=== PATIENT | female | born 1930 | race Caucasian/White ===

== ENCOUNTER 2017-01-22 15:40 | Emergency (ER) | payer MEDICARE, MEDICAID ==
[2017-01-22] MEDS ORDERED: ONDANSETRON 4 MG TAB.RAPDIS PO ONE (16:35)
[2017-01-22] MEDS ORDERED: OXYCODONE-ACETAMINOPHEN 5-325 MG TABLET PO ONE (16:35)
--- NOTE | 2017-01-22 16:51 | RADIOLOGY REPORT (SQ) ---
EXAM DESCRIPTION: ELBOW LEFT AP/LATERAL COMPLETED DATE/TIME: 01/22/2017 4:30 pm REASON FOR STUDY: fall COMPARISON: None. NUMBER OF VIEWS: Four views. TECHNIQUE: AP, lateral, and both oblique radiographic images acquired of the left elbow. LIMITATIONS: None. FINDINGS: MINERALIZATION: Osteopenia. BONES: There is a fracture of the neck of the radius with angulation. The elbow is dislocated with t he ulna displaced dorsally in relation to the humerus. JOINT: No effusion. SOFT TISSUES: No soft tissue swelling. No foreign body. OTHER: No other significant finding. IMPRESSION: Fracture dislocation of the elbow. TECHNICAL DOCUMENTATION: JOB ID: [id number] [employer]- All Rights Reserved
[2017-01-22] MEDS ORDERED: FENTANYL CITRATE INJ/PF 100 MCG/2 ML AMPUL IV ONE (17:49)
--- NOTE | 2017-01-22 17:56 | ER Document Report ---
ED Extremity Problem, Upper - General Chief Complaint: Arm Injury Stated Complaint: LEFT ELBOW PAIN Time Seen by Provider: 01/22/17 16:35 Mode of Arrival: Medic Information source: Patient TRAVEL OUTSIDE OF THE [place] IN LAST 30 DAYS: No - HPI Patient complains to provider of: Right, Elbow Onset: Just prior to arrival Recent injury: Yes Where: Home Quality of pain: Dull Severity of pain: Moderate Context: Fall Arm and Shoulder (Left): 1 - PAIN, SWELLING, TENDER Associated symptoms: None Exacerbated by: Movement Relieved by: Rest Similar symptoms previously: No Recently seen / treated by doctor: No - Related Data Allergies/Adverse Reactions: simvastatin [From Zocor] Allergy (Verified 10/15/15 16:16) Generalized Itching Past Medical History - General Information source: Patient - Social History Smoking Status: Never Smoker Cigarette use (# per day): No Chew tobacco use (# tins/day): No Frequency of alcohol use: None Drug Abuse: None Lives with: Alone Family History: Reviewed & Not Pertinent Patient has suicidal ideation: No Patient has homicidal ideation: No - Past Medical History Cardiac Medical History: Reports: Hx Heart Attack - x2, Hx Hypertension Pulmonary Medical History: Reports: Hx Pneumonia Neurological Medical History: Reports: None Endocrine Medical History: Reports: Hx Diabetes Mellitus Type 2 Renal/ Medical History: Reports: None Malignancy Medical History: Reports: None GI Medical History: Reports: None Musculoskeltal Medical History: Reports Hx Arthritis Psychiatric Medical History: Reports: Hx Depression Past Surgical History: Reports: Hx Cardiac Surgery - bypass, Hx Coronary Artery Bypass Graft, Hx Orthopedic Surgery - bilateral hip replacement, WISHES TO F/U W / HER ORTHO IN [place] - Immunizations Hx Diphtheria, Pertussis, Tetanus Vaccination: No Hx Pneumococcal Vaccination: 09/03/15 Review of Systems - Review of Systems Constitutional: No symptoms reported EENT: No symptoms reported Cardiovascular: No symptoms reported Respiratory: No symptoms reported Gastrointestinal: No symptoms reported Genitourinary: No symptoms reported Musculoskeletal: See HPI Skin: No symptoms reported Neurological/Psychological: No symptoms reported Physical Exam - Vital signs Vitals: Temp Pulse Resp BP 97.6 F 72 16 166/65 H 01/22/17 15:48 01/22/17 15:48 01/22/17 15:48 01/22/17 15:48 Interpretation: Hypertensive - General General appearance: Appears well, Alert In distress: None - HEENT Head: Open wounds Eyes: Normal Ears: Normal Nasal: Normal Mouth/Lips: Normal Mucous membranes: Normal - Respiratory Respiratory status: No respiratory distress Chest status: Nontender Breath sounds: Normal - Cardiovascular Rhythm: Regular Heart sounds: Normal auscultation Murmur: No - Abdominal Inspection: Normal Distension: No distension - Extremities General upper extremity: No: Normal inspection - L. ELBOW (SEE HPI) - Neurological Neuro grossly intact: Yes Cognition: Normal Orientation: AAOx4 Sensory: Normal - Psychological Associated symptoms: Normal affect, Normal mood - Skin Skin Temperature: Warm Skin Moisture: Dry Skin Color: Normal Skin Turgor: Elastic Course - Vital Signs Vital signs: Temp Pulse Resp BP Pulse Ox 97.6 F 72 16 146/77 H 97 01/22/17 15:48 01/22/17 15:48 01/22/17 19:01 01/22/17 19:01 01/22/17 19:01 Procedures - Joint Reduction/Fracture Care Left Elbow Time completed: 19:12 Consent obtained: No Conscious sedation: No Pre-procedure NV exam: Yes - NORMAL Fracture: Closed Manipulation comment: REDUCED EASILY WITH TRACTION DOWNWARD & ANTERIORLY Post-procedure NV exam: Yes - UNCHANGED Post-reduction x-ray: Joint reduced Reduction attempts: 1 Complications: No Discharge - Discharge Clinical Impression: Elbow dislocation Qualifiers: Encounter type: initial encounter Laterality: left Qualified Code(s): S53.105A - Unspecified dislocation of left ulnohumeral joint, initial encounter Radial head fracture, closed Qualifiers: Encounter type: initial encounter Fracture alignment: displaced Laterality: left Qualified Code(s): S52.122A - Displaced fracture of head of left radius, initial encounter for closed fracture Condition: Stable Disposition: HOME, SELF-CARE Instructions: Radial Head Fracture ([facility]), Dislocation ([facility]), Ice Packs ([facility]), Splint Pending Casting ([facility]), Oral Narcotic Medication ([facility]) Additional Instructions: KEEP SPLINT ON EXCEPT WHEN BATHING. YOU MAY TAKE PERCOCET FOR PAIN IF NEEDED. FOLLOW UP WITH YOUR ORTHOPEDIC SURGEON NEXT WEEK, CALL TOMORROW FOR APPT. RETURN TO E.R. IF PROBLEMS, ANY TIME. Prescriptions: Oxycodone HCl/Acetaminophen [Percocet 5-325 mg Tablet] 1 - 2 tab PO ASDIR PRN # 15 tablet PRN Reason: Referrals: Agustina HITCHCOCK MD [Primary Care Provider] - Follow up as needed
--- NOTE | 2017-01-22 19:39 | RADIOLOGY REPORT (SQ) ---
EXAM DESCRIPTION: ELBOW LEFT AP/LATERAL COMPLETED DATE/TIME: 01/22/2017 7:26 pm REASON FOR STUDY: POST-REDUCTION COMPARISON: 01/22/2017 TECHNIQUE: Lateral view of the left elbow. LIMITATIONS: None. FINDINGS: There has been interval reduction of the previously described fracture dislocation of the elbow. IMPRESSION: Interval reduction as noted above. TECHNICAL DOCUMENTATION: JOB ID: [id number] [employer]- All Rights Reserved
[2017-01-22] MEDS ORDERED: HYDROCODONE/ACETAMINOPHEN 5-325 MG 6 TAB/DSPK PO PRN (20:25)
[2017-01-22 21:30] VITALS: BP 145/60
== END 2017-01-22 21:00 | disposition home or self-care (01) ==
LOC: ER 15:40
PROC: 0RSMXZZ Reposition Left Elbow Joint, External Approach (ICD-10-PCS; principal; 2017-01-22)
DX: S52.122A Displaced fracture of head of left radius, initial encounter for closed fracture (principal); S53.105A Unspecified dislocation of left ulnohumeral joint, initial encounter; W19.XXXA Unspecified fall, initial encounter; Y92.009 Unspecified place in unspecified non-institutional (private) residence as the place of occurrence of the external cause; I25.2 Old myocardial infarction; I10 Essential (primary) hypertension; E11.9 Type 2 diabetes mellitus without complications; Z95.1 Presence of aortocoronary bypass graft; Z88.8 Allergy status to other drugs, medicaments and biological substances
CPT/HCPCS: 99283; 73070; 24600; A9270 ×3; J3010; S0119

== ENCOUNTER 2017-04-08 12:26 | Emergency (ER) | payer MEDICARE, MEDICAID ==
--- NOTE | 2017-04-08 12:56 | ER Document Report ---
ED Hip Pain/Injury - General Mode of Arrival: Medic Information source: Patient TRAVEL OUTSIDE OF THE [place] IN LAST 30 DAYS: No <KRANTHI MELGAR - Last Filed: 04/08/17 13:07> <JERRI SLATER - Last Filed: 04/08/17 15:15> - General Chief Complaint: Hip Pain Stated Complaint: HIP PAIN Time Seen by Provider: 04/08/17 12:35 Notes: Patient is an 86-year-old female who presents to the emergency department today with complaints of bilateral hip pain. Patient states she has had this pain for approximately 1 month. Patient states she was seen by her PCP for this 2 weeks ago but she had "no suggestions". Patient is on pain management for chronic pain. Patient denies any new injury or trauma to her hips. (KRANTHI MELGAR) The patient is on chronic pain management for quite some time fentanyl patches 12 mcg, and oxycodone 7.5 mg tablets 2-3 times daily. (JERRI SLATER) - Related Data Allergies/Adverse Reactions: simvastatin [From Zocor] Allergy (Verified 10/15/15 16:16) Generalized Itching Home Medications: Current Home Medications Calcium Carbonate [Calcium] 500 mg PO DAILY 04/08/17 [History] Hydralazine HCl 10 mg PO TID 04/08/17 [History] Metoprolol Tartrate [Metoprolol Tartrate] 1 tab PO BID 04/08/17 [History] Past Medical History - General Information source: Patient - Social History Smoking Status: Never Smoker Cigarette use (# per day): No Frequency of alcohol use: None Drug Abuse: None Lives with: Family Family History: Reviewed & Not Pertinent - Past Medical History Cardiac Medical History: Reports: Hx Heart Attack - x2, Hx Hypertension Pulmonary Medical History: Reports: Hx Pneumonia Endocrine Medical History: Reports: Hx Diabetes Mellitus Type 2 Musculoskeltal Medical History: Reports Hx Arthritis Psychiatric Medical History: Reports: Hx Depression Past Surgical History: Reports: Hx Cardiac Surgery - bypass, Hx Coronary Artery Bypass Graft, Hx Orthopedic Surgery - bilateral hip replacement, WISHES TO F/U W / HER ORTHO IN [place] - Immunizations Hx Diphtheria, Pertussis, Tetanus Vaccination: No Hx Pneumococcal Vaccination: 09/03/15 <KRANTHI MELGAR - Last Filed: 04/08/17 13:07> Review of Systems - Review of Systems Constitutional: No symptoms reported EENT: No symptoms reported Cardiovascular: No symptoms reported Respiratory: No symptoms reported Gastrointestinal: No symptoms reported Genitourinary: No symptoms reported Female Genitourinary: No symptoms reported Musculoskeletal: See HPI, Joint pain - bilateral hip pain Skin: No symptoms reported Hematologic/Lymphatic: No symptoms reported Neurological/Psychological: No symptoms reported -: Yes All other systems reviewed and negative <KRANTHI MELGAR - Last Filed: 04/08/17 13:07> Physical Exam - Vital signs Interpretation: Normal - General General appearance: Appears well, Alert - HEENT Head: Normocephalic, Atraumatic Eyes: Normal Pupils: PERRL - Respiratory Respiratory status: No respiratory distress Chest status: Nontender Breath sounds: Normal Chest palpation: Normal - Cardiovascular Rhythm: Regular Heart sounds: Normal auscultation Murmur: No - Abdominal Inspection: Normal Distension: No distension Bowel sounds: Normal Tenderness: Nontender Organomegaly: No organomegaly - Back Back: Normal, Nontender - Extremities General upper extremity: Normal ROM, Other - arthritic changes to bilateral wrists consistent with fracture history. No: Edema General lower extremity: Other - Right knee effusion. Bilateral hip tenderness with internal/external rotation of hips. - Neurological Neuro grossly intact: Yes Cognition: Normal Orientation: AAOx4 [place] Coma Scale Eye Opening: Spontaneous [place] Coma Scale Verbal: Oriented [place] Coma Scale Motor: Obeys Commands [place] Coma Scale Total: 15 Speech: Normal - Psychological Associated symptoms: Normal affect, Normal mood - Skin Skin Temperature: Warm Skin Moisture: Dry <KRANTHI MELGAR - Last Filed: 04/08/17 13:07> <JERRI SLATER - Last Filed: 04/08/17 15:15> - Vital signs Vitals: Resp Pulse Ox 16 98 04/08/17 12:48 04/08/17 12:48 - Skin Notes: Bandaged abrasion over left lateral leg, bleeding is controlled. (KRANTHI MELGAR) Course <KRANTHI MELGAR - Last Filed: 04/08/17 13:07> - Diagnostic Test Radiology reviewed: Image reviewed, Reports reviewed - Patient has bilateral total hip replacements with no gross abnormality seen. 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 <JERRI SLATER - Last Filed: 04/08/17 15:15> - Re-evaluation Re-evalutation: 04/08/17 15:14 At discharge, the patient finally admitted that she has run out of her pain medication because she was taking more than she supposed to due to her pain. She also is running out of her fentanyl patch. I had the nurse advised her that we do not treat chronic pain, we do not supply narcotics to people who run out of their chronic pain medication by overmedicating themselves. She would have to see her pain management doctor to try to work out an arrangement if possible. (JERRI SLATER) - Vital Signs Vital signs: Temp Pulse Resp BP Pulse Ox 19 186/74 H 96 04/08/17 14:00 04/08/17 13:01 04/08/17 14:00 - Laboratory Laboratory results interpreted by me: 04/08/17 13:32 Urine Protein 30 H Urine Glucose (UA) >=500 H Urine Ketones 20 H Urine Urobilinogen 2.0 H Discharge <KRANTHI MELGAR - Last Filed: 04/08/17 13:07> <JERRI SLATER - Last Filed: 04/08/17 15:15> - Discharge Clinical Impression: Bilateral hip pain Chronic pain Qualifiers: Chronic pain type: chronic pain syndrome Qualified Code(s): G89.4 - Chronic pain syndrome Condition: Stable Disposition: HOME, SELF-CARE Additional Instructions: No new abnormalities were found today. You pain seems to be related to your chronic pain management difficulties. You should follow-up with your pain management doctors to discuss the progressively worsening pain you are having. RETURN TO THE EMERGENCY ROOM IF ANY NEW OR WORSENING SYMPTOMS. Referrals: SHAYY FLORES MD [Primary Care Provider] - Follow up as needed Scribe Attestation: 04/08/17 15:03 I personally performed the services described in the documentation, reviewed and edited the documentation which was dictated to the scribe in my presence, and it accurately records my words and actions. (JERRI SLATER) Scribe Documentation - Scribe Written by Samanta:: Samanta Patterson, 04/08/2017 [id number] acting as scribe for :: Horacio <KRANTHI MELGAR - Last Filed: 04/08/17 13:07>
[2017-04-08 14:24] LABS: APPEARANCE,URINE SLIGHTLY-CLOUDY; BILIRUBIN,URINE NEGATIVE (NEGATIVE); GLUCOSE, URINE >=500 mg/dL (NEGATIVE); KETONES,URINE 20 mg/dL (NEGATIVE); LEUKOCYTE ESTERASE,URINE NEGATIVE (NEGATIVE); NITRITE,URINE NEGATIVE (NEGATIVE); PROTEIN,URINE 30 mg/dL (NEGATIVE)
--- NOTE | 2017-04-08 14:31 | RADIOLOGY REPORT (SQ) ---
EXAM DESCRIPTION: HIP BILATERAL COMPLETED DATE/TIME: 04/08/2017 2:02 pm REASON FOR STUDY: worsening bilat hip pain, COMPARISON: 09/21/2015 NUMBER OF VIEWS: Two views TECHNIQUE: AP pelvis and additional frog-leg view of both hips. LIMITATIONS: None. FINDINGS: MINERALIZATION: Normal. HIPS: Status post bilateral total hip replacement. Each acetabular cup and femoral head in good posi tion. No loosening. No significant abnormality of the surrounding [place] bone. PELVIS AND SACRUM: No acute fracture or dislocation. No worrisome bone lesions. PUBIS AND ISCHIUM: No acute fracture. LOWER LUMBAR SPINE: Limited visualization suspected severe disc degeneration and facet arthropathy. SOFT TISSUES: No findings. OTHER: No other significant finding. IMPRESSION: Status post bilateral total hip replacement. Each prosthesis in good position. No sign ificant abnormality to explain the history of worsening hip pain. Pain might be radicular when deepak elated with the changes involving the lower lumbar spine. TECHNICAL DOCUMENTATION: JOB ID: [id number] [employer]- All Rights Reserved
[2017-04-08 15:36] VITALS: BP 180/83
== END 2017-04-08 15:42 | disposition home or self-care (01) ==
LOC: ER 12:26
DX: M25.551 Pain in right hip (principal); M25.552 Pain in left hip; G89.4 Chronic pain syndrome; Z79.899 Other long term (current) drug therapy
CPT/HCPCS: 73522; 81001; 99284

== ENCOUNTER 2018-03-17 11:00 | Inpatient (IN) | payer MEDICARE, MEDICAID ==
--- NOTE | 2018-03-17 11:42 | ER Document Report ---
ED General - General Chief Complaint: General Weakness Stated Complaint: WEAKNESS Time Seen by Provider: 03/17/18 11:10 Mode of Arrival: Stretcher Information source: Patient, Relative Notes: 87-year-old female with hypertension CHF, lupus, and CT 2 status post CABG, diverticulosis, GERD, type 2 diabetes, SLE who presents to the ED via EMS from home with generalized weakness, malaise, productive cough, chills, sweats, and mild abdominal pain x 2-3 days. Patient states she has a history of pneumonia that presented similarly. Denies taking any medications for her symptoms. Poor p.o. intake since symptom onset, last normal bowel movement yesterday. Denies headache, syncope, falls, dizziness, chest pain, shortness of breath, nausea, vomiting, diarrhea, melena, hematochezia. TRAVEL OUTSIDE OF THE [place] IN LAST 30 DAYS: No - HPI Onset: Other - 2-3 days ago Onset/Duration: Gradual Quality of pain: Achy Severity: Moderate Associated symptoms: Chills, Productive cough, Nausea. denies: Fever, Vomiting Exacerbated by: Denies Relieved by: Denies Similar symptoms previously: Yes Recently seen / treated by doctor: No - Related Data Allergies/Adverse Reactions: simvastatin [From Zocor] Allergy (Verified 10/15/15 16:16) Generalized Itching Past Medical History - General Information source: Patient, Relative, [facility] Records - Social History Smoking Status: Never Smoker Frequency of alcohol use: None Drug Abuse: None Lives with: Alone Family History: Reviewed & Not Pertinent Patient has suicidal ideation: No Patient has homicidal ideation: No - Medical History Notes: Hypertension, CT 2 status post CABG, type 2 diabetes, SLE, GERD, pneumonia, diverticulosis - Past Medical History Cardiac Medical History: Reports: Hx Heart Attack - x2, Hx Hypertension Pulmonary Medical History: Reports: Hx Pneumonia Endocrine Medical History: Reports: Hx Diabetes Mellitus Type 2 Musculoskeletal Medical History: Reports Hx Arthritis Psychiatric Medical History: Reports: Hx Depression Past Surgical History: Reports: Hx Cardiac Surgery - bypass, Hx Coronary Artery Bypass Graft, Hx Orthopedic Surgery - bilateral hip replacement, WISHES TO F/U W / HER ORTHO IN [place] [facility] - Immunizations Hx Diphtheria, Pertussis, Tetanus Vaccination: No Hx Pneumococcal Vaccination: 09/03/15 Review of Systems - Review of Systems Notes: REVIEW OF SYSTEMS: CONSTITUTIONAL : (+) fever, chills, sweats. Denies recent illness. Denies weight loss, recent hospitalizations. EENT: Denies visual changes, eye pain. Denies nasal or sinus congestion or discharge. Denies sore throat, oral lesions, difficulty swallowing. CARDIOVASCULAR: Denies chest pain. Denies palpitations. Denies lower extremity edema. RESPIRATORY: (+) productive cough. Denies shortness of breath, wheezing. GASTROINTESTINAL: (+) diffuse abdominal pain, Denies distention. Denies nausea , vomiting, or diarrhea. Denies blood in vomitus, stools, or per rectum. Denies black, tarry stools. Denies constipation. GENITOURINARY: Denies difficulty urinating, painful urination, frequency, blood in urine, or vaginal discharge. MUSCULOSKELETAL: Denies back or neck pain or stiffness. Denies joint pain or swelling. SKIN: Denies rash, lesions or sores. HEMATOLOGIC : Denies easy bruising or bleeding. LYMPHATIC: Denies swollen glands. NEUROLOGICAL: Denies confusion or altered mental status. Denies passing out or loss of consciousness. Denies dizziness or lightheadedness. Denies headache. Denies weakness or paralysis. Denies problems difficulty with ambulation, slurred speech. Denies sensory loss, numbness, or tingling. Denies seizures. PSYCHIATRIC: Denies anxiety or stress. Denies depression, suicidal ideation, or homicidal ideation. Denies visual or auditory hallucinations. Physical Exam - Vital signs Vitals: Temp Pulse Resp BP Pulse Ox 97.4 F 75 16 164/67 H 97 03/17/18 11:04 03/17/18 11:04 03/17/18 11:04 03/17/18 11:04 03/17/18 11:04 - Notes Notes: PHYSICAL EXAMINATION: GENERAL: Ill-appearing, frail, elderly female in no acute distress. HEAD: Atraumatic, normocephalic. EYES: Pupils equal round and reactive to light, extraocular movements intact, conjunctiva are normal. ENT: Nares patent, oropharynx clear without exudates. Tacky mucous membranes. NECK: Normal range of motion, supple without lymphadenopathy LUNGS: Bibasilar crackles, breath sounds equal bilaterally. Normal work of breathing. HEART: Regular rate and rhythm without murmurs ABDOMEN: Mild diffuse abdominal tenderness.. nondistended abdomen. No guarding , no rebound. No masses appreciated. Female : deferred Musculoskeletal: Normal range of motion, no pitting or edema. No cyanosis. NEUROLOGICAL: Cranial nerves grossly intact. Normal speech, normal gait. Normal sensory, motor exams PSYCH: Normal mood, normal affect. SKIN: Warm, Dry, normal turgor, no rashes or lesions noted. Course - Re-evaluation Re-evalutation: 03/17/18 19:52 Jennyrantoniabeth simvastatin [From Zocor] Allergy (Verified 10/15/15 16:16) Generalized Itching Patient Prescrptions Alprazolam [Xanax] 0.25 mg PO BID@1200,2200 03/17/18 Amlodipine Besylate [Norvasc 5 mg Tablet] 5 mg PO NOON 03/17/18 Atenolol [Tenormin 50 mg Tablet] 50 mg PO QHS 03/17/18 Calcium Carbonate [Calcium] 600 mg PO NOON 03/17/18 Cholecalciferol (Vitamin D3) [Vitamin D3] 5,000 unit PO NOON 03/17/18 Fenofibrate 160 mg PO DAILY 03/17/18 Fentanyl [Duragesic 12 Mcg/Hr Transdermal Patch] 1 patch TOP Q3D 03/17/18 Ferrous Sulfate [Feosol 325 mg Tablet] 325 mg PO TID@1200,1800,2200 03/17/18 Furosemide [Lasix 20 mg Tablet] 5 mg PO DAILY 03/17/18 Gabapentin [Neurontin 300 mg Capsule] 600 mg PO Q12 03/17/18 Glimepiride [Amaryl 4 mg Tablet] 4 mg PO BID 03/17/18 Hydralazine HCl [Apresoline 25 mg Tablet] 25 mg PO Q8 03/17/18 Hydroxyzine Pamoate [Vistaril 25 mg Capsule] 25 mg PO QHS 03/17/18 Isosorbide Mononitrate [Isosorbide Mononitrate ER] 30 mg PO NOON 03/17/18 Levothyroxine Sodium [Synthroid 0.025 mg Tablet] 0.025 mg PO NOON 03/17/18 Metoprolol Tartrate [Lopressor 25 mg Tablet] 12.5 mg PO Q12 03/17/18 Omeprazole 20 mg PO DAILY 03/17/18 Oxycodone HCl/Acetaminophen [Oxycodon-Acetaminophen 7.5-325] 1 tab PO Q12HP PRN 08/15/18 Paroxetine HCl [Paxil 20 mg Tablet] 20 mg PO DAILY 03/17/18 Prednisone 7.5 mg PO QHS 03/17/18 Promethazine HCl [Phenergan 25 mg Tablet] 25 mg PO DAILYP PRN 03/17/18 Zolpidem Tartrate [Ambien 5 mg Tablet] 5 mg PO QHS 03/17/18 Clinical Data Isolation Standard Height 5 ft 3 in Weight 52.617 kg IV? Yes : No Please enter food consistency: Regular Consistency Please choose liquid type: Regular Liquids Discharge Information ED Provider: LETY ALEMAN Status: Bed Clean Time Seen by Provider: 03/17/18 11:10 Condition: Good Triaged At: 03/17/18 11:00 Emergency Discharge Date/Time: Emergency Discharge Disposition: ADMITTED INPATIENT Clinical Impression Elevated troponin I level Urinary tract infection Emergency Discharge Comment: Admit Intervention Last Done Vital Signs (ED) 03/17/18 11:25 Query Result Height 5 ft 3 in Weight 52.617 kg Discharge Documentation Left Without Being Seen (LWBS) Left Against Medical Advice (AMA)/Eloped Inpatient Discharge Date/Time: Inpatient Discharge Disposition: Inpatient Discharge Comment: Instructions: Stand-Alone Forms: Prescriptions: Visit Report - Forms: - Referrals: SHAYY FLORES MD (Primary Care Provider) - Follow up as needed Intake and Output 03/16/18 03/17/18 03/18/18 06:59 06:59 06:59 Intake Total 50 Balance 50 Weight 52.617 kg Intake: IV 50 Rocephin Inj 1000 mg Vial 50 1,000 mg In NaCl 0.9% 50 ml IV Soln 50 ml @ 100 mls/hr IV NOW ONE Rx#: [id number] Medications Generic Name Dose Route Start Last Admin Trade Name Freq PRN Reason Stop Dose Admin Acetaminophen 650 mg 03/17/18 16:09 Tylenol 325 Mg Tablet PO 04/16/18 16:08 Q4HP PRN FEVER >101 Dextrose 12.5 gm 03/17/18 16:50 Dextrose Inj 50% Syringe (25 Gm/50 Ml) IV 04/16/18 16:49 PRN PRN FOR BG 50-69 IN ALERT PATIENT Protocol Dextrose 25 gm 03/17/18 16:50 Dextrose Inj 50% Syringe (25 Gm/50 Ml) IV 04/16/18 16:49 PRN PRN PER PROTOCOL Protocol Enoxaparin Sodium 40 mg 03/18/18 10:00 Lovenox Inj 40 Mg/0.4 Ml Disp.Syrin SUBCUT 04/17/18 09:59 DAILY VERNON Glucagon 1 mg 03/17/18 16:50 Glucagen Inj 1 Mg Vial IM 04/16/18 16:49 PRN PRN Evaluate for BG < 70 Protocol Glucose 15 gm 03/17/18 16:50 Glutose 40% Gel 15 Gm Tube PO 04/16/18 16:49 PRN PRN FOR BG 50-69 IN ALERT PATIENT Protocol Glucose 30 gm 03/17/18 16:50 Glutose 40% Gel 15 Gm Tube PO 04/16/18 16:49 PRN PRN FOR BG < 50 IN ALERT PATIENT Protocol Hydralazine HCl 10 mg 03/17/18 16:48 Apresoline Inj/Pf 20 Mg/1 Ml Sdv IV 04/16/18 16:47 Q3HP PRN GIVE FOR SBP > [] / DBP > [] Sodium Chloride 1,000 mls @ 75 mls/hr 03/17/18 16:09 03/17/18 18:29 Nacl 0.9% 1000 Ml Iv Soln IV 04/16/18 16:08 75 mls/hr CONTINUOUS PRN Administration THIS MED IS NOT "PRN" Ceftriaxone Sodium 1,000 mg/ 50 mls @ 100 mls/hr 03/18/18 18:00 Dextrose IV 03/25/18 17:59 QPM [facility] Insulin Human Lispro 0 - 12 unit 03/17/18 16:50 Humalog Insulin 100 Unit/1 Ml 3 Ml Vial SUBCUT 04/16/18 16:49 ACHSP PRN PER PROTOCOL Protocol Lansoprazole 30 mg 03/18/18 06:00 Prevacid 30 Mg Odt Tablet PO 04/17/18 05:59 Q6AM [facility] Ondansetron HCl 4 mg 03/17/18 16:09 Zofran Odt 4 Mg Tablet PO 04/16/18 16:08 Q4HP PRN FOR NAUSEA/VOMITING Discontinued Medications Generic Name Dose Route Start Last Admin Trade Name Freq PRN Reason Stop Dose Admin Ceftriaxone Sodium/Dextrose 1 gm in 50 mls @ 100 mls/hr 03/17/18 13:29 18:10 Rocephin Rtu 1 Gm/D5w 50 Ml Premix IV 03/17/18 13:58 Not Given NOW ONE Ceftriaxone Sodium 1,000 mg/ 50 mls @ 100 mls/hr 03/17/18 16:00 03/17/18 16: 05 Sodium Chloride IV 03/17/18 16:29 Infused NOW ONE Infusion Nursing Notes 03/17/18 18:37 Nursing Note by OTIS MCKEON pt called out using call denney stating "I'm burning up" this pct entered room, pt was diaphoretic in stretcher with meal tray untouched on bedside table; this pct grabbed charged nurse; accucheck performed, values given to charge nurse and pt nurse; pt drank 2 orange juice boxes and ate apple sauce; accucheck retaken; pt placed on bedpan; pt voided; barrier cream applied to pt fold on right side 1806 accucheck 58mg/dL 1830 accucheck 83 mg/dL Initialized on 03/17/18 18:37 - END OF NOTE 03/17/18 18:31 ED Nursing Note by BILLY MAGDALENO Recheck BGL after q15 83. Will monitor q30min x2 per protocol. Initialized on 03/17/18 18:31 - END OF NOTE 03/17/18 18:11 ED Nursing Note by BILLY MAGDALENO Pt diaphoretic with BGL 58. Administered 4oz OJ and assisted with meal tray. Will recheck glucose in q15 and implement hypoglycemic protocol per policy. Initialized on 03/17/18 18:11 - END OF NOTE 03/17/18 11:29 ED Nursing Note by BILLY MAGDALENO Pt brought in today via EMS for complaint of generalized weakness and nausea for the past two days. Pt denies v/d but states she has had a decreased appetite. Pt states she is having ABD pain that she rates at a 4 out of 5. Pt ABD is soft, flat, and tender to palpation. NAD noted. A&Ox4. Initialized on 03/17/18 11:29 - END OF NOTE Orders 03/17/18 EKG ER ONLY [ER] Stat 03/17/18 11:31 CXR [CHEST 2 VIEWS] [RAD] Stat EKG ER ONLY [ER] Stat 03/17/18 11:32 EKG Documentation STAT 03/17/18 11:42 Cath [Straight Catheter (ED)] NOW 03/17/18 12:10 CBC WITH DIFF [HEME] Stat COMPREHENSIVE METABOLIC PANEL [CHEM] Stat CREATINE KINASE MB [CHEM] Stat CREATINE KINASE [CHEM] Stat LIPASE [CHEM] Stat TROPONIN I [CHEM] Stat URINALYSIS [URIN] Stat URINE CULTURE [MC] Routine 03/17/18 12:25 WET MOUNT [MO] Stat 03/17/18 12:59 CT ABD/PELVIS WITH IV ONLY [CT] Stat 03/17/18 13:29 Ceftriaxone 1 gm/D5w RTU [Rocephin RTU 1 gm/D5w 50 ml Premix] 1 gm in 50 ml IV NOW 03/17/18 15:33 EKG Documentation STAT 03/17/18 16:00 Ceftriaxone Sodium [Rocephin Inj 1000 mg Vial] 1,000 mg Normal Saline [NaCl 0.9% 50 ml IV Soln] 50 ml IV NOW 03/17/18 16:09 Adult Intake and Output [RC] QSHIFT Fall Precaution [RC] .ROUTINE Out of Bed with assistance [RC] .ROUTINE Patient Status-Admission .Routine Apparel Stock Checker [CONS] Routine Acetaminophen [Tylenol 325 mg Tablet] 650 mg PO Q4HP PRN Normal Saline 1000 ml [NaCl 0.9% 1000 ml IV Soln] 1,000 ml IV CONTINUOUS Ondansetron [Zofran Odt 4 mg Tablet] 4 mg PO Q4HP PRN Resuscitation Status Routine Vital Signs [RC] Q4H Weight [RC] Q6AM Physical Therapy Evaluation [REHAB] .once 03/17/18 16:10 District Service Manager [RC] CONTINUOUS Leave Floor without Cardiac Mo [RC] CONTINUOUS 03/17/18 16:14 Patient Education-Lovenox [RC] DAILY Patient Education-VTE [RC] QSHIFT Patient Education-VTE [RC] QSHIFT Cornell Hose [RC] QSHIFT 03/17/18 16:15 BLOOD CULTURE [MC] Stat Mechanical Prophylaxis .ROUTINE Pharmacological Prophylaxis .ROUTINE 03/17/18 16:44 anemia [IRON (ANEMIA) Studies in AM] [CHEM] Routine 03/17/18 16:48 Hydralazine HCl [Apresoline Inj/Pf 20 mg/1 ml Sdv] 10 mg IV Q3HP PRN 03/17/18 16:50 Dextrose 50%-Water [Dextrose Inj 50% Syringe (25 gm/50 ml)] 12.5 gm IV PRN PRN Dextrose 50%-Water [Dextrose Inj 50% Syringe (25 gm/50 ml)] 25 gm IV PRN PRN Dextrose [Glutose 40% Gel 15 gm Tube] 15 gm PO PRN PRN Dextrose [Glutose 40% Gel 15 gm Tube] 30 gm PO PRN PRN Glucagon,Human Recombinant [Glucagen Inj 1 mg Vial] 1 mg IM PRN PRN Insulin Lispro [Humalog Insulin 100 Unit/1 ml 3 ml Vial] 0 - 12 unit SUBCUT ACHSP PRN 03/17/18 17:16 BLOOD CULTURE [MC] Routine 03/17/18 20:00 CKMB [CREATINE KINASE MB] [CHEM] Q8H CREATINE KINASE [CHEM] Q8H TROPONIN I [CHEM] Q8 03/17/18 Dinner Adult Diet [DIET] 03/18/18 06:00 BASIC METABOLIC PANEL [CHEM] DAILY CBC WITH DIFF [HEME] DAILY CKMB [CREATINE KINASE MB] [CHEM] Q8H CREATINE KINASE [CHEM] Q8H FERRITIN [CHEM] Routine FOLATE [CHEM] Routine LIVER FUNCTION PANEL [CHEM] IN AM MAGNESIUM [CHEM] DAILY RETICULOCYTE COUNT BATTERY [HEME] Routine THYROID STIMULATING HORMONE [CHEM] IN AM TOTAL IRON BINDING CAPACITY [CHEM] Routine TROPONIN I [CHEM] Q8 VITAMIN B12 [CHEM] Routine Lansoprazole [Prevacid 30 mg Odt Tablet] 30 mg PO Q6AM ELECTROCARDIOGRAM IN AM 03/18/18 10:00 Enoxaparin Sodium [Lovenox Inj 40 mg/0.4 ml Disp.syrin] 40 mg SUBCUT DAILY 03/18/18 14:00 TROPONIN I [CHEM] Q8 03/18/18 18:00 Ceftriaxone Sodium [Rocephin Inj 1000 mg Vial] 1,000 mg Dextrose 5%-Water [ D5w 50 ml IV Soln] 50 ml IV QPM 03/19/18 06:00 BASIC METABOLIC PANEL [CHEM] DAILY CBC WITH DIFF [HEME] DAILY MAGNESIUM [CHEM] DAILY 03/20/18 06:00 BASIC METABOLIC PANEL [CHEM] DAILY CBC WITH DIFF [HEME] DAILY MAGNESIUM [CHEM] DAILY Problems Ambulatory dysfunction (Acute) Anemia (Acute) Cholelithiasis (Acute) Chronic pain (Acute) Coronary artery disease (Acute) Diabetes (Acute) Elevated troponin (Acute) Elevated troponin I level (Acute) Full code status (Acute) GERD (gastroesophageal reflux disease) (Acute) Hypertension (Acute) Opiate dependence, continuous (Acute) SLE (systemic lupus erythematosus) (Acute) UTI (urinary tract infection) (Acute) Vital Signs Temp Pulse Resp BP BP Pulse Ox 03/17/18 19:01 24 H 145/82 H 95 03/17/18 18:31 21 H 173/68 H 92 03/17/18 18:06 21 H 205/69 H 95 03/17/18 18:05 15 96 03/17/18 18:01 18 196/73 H 96 03/17/18 18:00 19 93 03/17/18 17:46 98.2 F 03/17/18 17:01 17 176/63 H 95 03/17/18 17:00 17 97 03/17/18 16:44 96 03/17/18 11:04 97.4 F 75 16 164/67 H 97 Laboratory 03/17/18 03/17/18 03/17/18 12:10 12:10 12:10 WBC 6.4 RBC 3.78 Hgb 11.6 L Hct 35.0 L MCV 93 MCH 30.8 MCHC 33.2 RDW 14.3 H Plt Count 277 Seg Neutrophils % 55.3 Lymphocytes % 28.0 Monocytes % 12.6 Eosinophils % 3.5 Basophils % 0.6 Absolute Neutrophils 3.6 Absolute Lymphocytes 1.8 Absolute Monocytes 0.8 Absolute Eosinophils 0.2 Absolute Basophils 0.0 Sodium 141.0 Potassium 3.6 Chloride 104 Carbon Dioxide 23 Anion Gap 14 BUN 22 H Creatinine 0.89 Est GFR ( Amer) > 60 Est GFR (Non-Af Amer) > 60 Glucose 82 POC Glucose Calcium 9.2 Total Bilirubin 0.9 Direct Bilirubin 0.6 H Neonat Total Bilirubin Not Reportable Neonat Direct Bilirubin Not Reportable Neonat Indirect Bili Not Reportable AST 38 H ALT 21 Alkaline Phosphatase 36 L Creatine Kinase 173 H CK-MB (CK-2) 3.35 Troponin I 0.046 Total Protein 6.7 Albumin 3.3 L Lipase 36.4 Urine Color Urine Appearance Urine pH Ur Specific [place] Urine Protein Urine Glucose (UA) Urine Ketones Urine Blood Urine Nitrite Urine Bilirubin Urine Urobilinogen Ur Leukocyte Esterase Urine WBC (Auto) Urine RBC (Auto) Urine Ascorbic Acid Trichomonas (Wet Prep) Vaginal WBC Vaginal RBC Vaginal Yeast 03/17/18 03/17/18 03/17/18 12:10 12:25 18:06 WBC RBC Hgb Hct MCV MCH MCHC RDW Plt Count Seg Neutrophils % Lymphocytes % Monocytes % Eosinophils % Basophils % Absolute Neutrophils Absolute Lymphocytes Absolute Monocytes Absolute Eosinophils Absolute Basophils Sodium Potassium Chloride Carbon Dioxide Anion Gap BUN Creatinine Est GFR ( Amer) Est GFR (Non-Af Amer) Glucose POC Glucose 58 L Calcium Total Bilirubin Direct Bilirubin Neonat Total Bilirubin Neonat Direct Bilirubin Neonat Indirect Bili AST ALT Alkaline Phosphatase Creatine Kinase CK-MB (CK-2) Troponin I Total Protein Albumin Lipase Urine Color YELLOW Urine Appearance CLEAR Urine pH 7.0 Ur Specific [place] 1.015 Urine Protein 30 H Urine Glucose (UA) NEGATIVE Urine Ketones TRACE H Urine Blood NEGATIVE Urine Nitrite NEGATIVE Urine Bilirubin NEGATIVE Urine Urobilinogen 4.0 H Ur Leukocyte Esterase MODERATE H Urine WBC (Auto) 22 Urine RBC (Auto) 1 Urine Ascorbic Acid NEGATIVE Trichomonas (Wet Prep) NO TRICHOMONAS SEEN Vaginal WBC 1+ WBCS SEEN Vaginal RBC FEW RBCS SEEN Vaginal Yeast NO YEAST SEEN 03/17/18 03/17/18 18:30 19:10 WBC RBC Hgb Hct MCV MCH MCHC RDW Plt Count Seg Neutrophils % Lymphocytes % Monocytes % Eosinophils % Basophils % Absolute Neutrophils Absolute Lymphocytes Absolute Monocytes Absolute Eosinophils Absolute Basophils Sodium Potassium Chloride Carbon Dioxide Anion Gap BUN Creatinine Est GFR ( Amer) Est GFR (Non-Af Amer) Glucose POC Glucose 83 118 H Calcium Total Bilirubin Direct Bilirubin Neonat Total Bilirubin Neonat Direct Bilirubin Neonat Indirect Bili AST ALT Alkaline Phosphatase Creatine Kinase CK-MB (CK-2) Troponin I Total Protein Albumin Lipase Urine Color Urine Appearance Urine pH Ur Specific [place] Urine Protein Urine Glucose (UA) Urine Ketones Urine Blood Urine Nitrite Urine Bilirubin Urine Urobilinogen Ur Leukocyte Esterase Urine WBC (Auto) Urine RBC (Auto) Urine Ascorbic Acid Trichomonas (Wet Prep) Vaginal WBC Vaginal RBC Vaginal Yeast Chest X-Ray 03/17/18 11:31 IMPRESSION: No acute disease. Abdomen/Pelvis CT 03/17/18 12:59 IMPRESSION: Multiple tiny gallstones in the gallbladder and gallbladder neck. Gallbladder mildly distended without gross wall thickening. No CT evidence of acute pancreatitis. Other findings as above 87-year-old female presents via EMS from home with complaints of generalized weakness, poor appetite, abdominal pain, productive cough. Patient was seen by myself upon arrival. Vital signs were reviewed. Patient is afebrile, normotensive and not hypoxic. Patient does not appear toxic or dehydrated. They are in no acute distress. Previous medical records and nursing notes reviewed. Significant findings include bibasilar crackles. Mild abdominal tenderness with palpation. Family is at the bedside and reports the patient has had increasing weakness, weight loss and lives independently. CBC is without leukocytosis. CMP shows no electrolyte abnormalities. Urinalysis consistent with urinary tract infection for which she received Rocephin. Chest x-ray was obtained and did not show any evidence of pneumonia. Patient does have an indeterminate troponin. Reviewing previous records patient's troponin is chronically elevated. EKG was obtained and did show ST depression which is again unchanged. Because of the patient's weakness and the fact that she lives alone I believe it is patient's best interest to be admitted to the hospital for IV antibiotics and PT evaluation. Patient and family agreeable to admission. She has been accepted by the hospitalist. 03/17/18 19:54 - Vital Signs Vital signs: Temp Pulse Resp BP Pulse Ox 98.2 F 75 24 H 145/82 H 95 03/17/18 17:46 03/17/18 11:04 03/17/18 19:01 03/17/18 19:01 03/17/18 19:01 - Laboratory Result Diagrams: 03/17/18 12:10 03/17/18 12:10 Laboratory results interpreted by me: 03/17/18 03/17/18 03/17/18 12:10 12:10 12:10 Hgb 11.6 L Hct 35.0 L RDW 14.3 H BUN 22 H Direct Bilirubin 0.6 H AST 38 H Alkaline Phosphatase 36 L Creatine Kinase 173 H Albumin 3.3 L Urine Protein 30 H Urine Ketones TRACE H Urine Urobilinogen 4.0 H Ur Leukocyte Esterase MODERATE H - Diagnostic Test Radiology reviewed: Image reviewed, Reports reviewed Discharge - Discharge Clinical Impression: Elevated troponin I level, Cough, Weakness UTI (urinary tract infection) Qualifiers: Urinary tract infection type: site unspecified Hematuria presence: without hematuria Qualified Code(s): N39.0 - Urinary tract infection, site not specified Hypertension Qualifiers: Hypertension type: unspecified Qualified Code(s): I10 - Essential (primary) hypertension Condition: Good Disposition: ADMITTED INPATIENT Admitting Provider: Hospitalist Unit Admitted: Medical Floor
--- NOTE | 2018-03-17 12:09 | RADIOLOGY REPORT (SQ) ---
EXAM DESCRIPTION: CHEST 2 VIEWS COMPLETED DATE/TIME: 03/17/2018 11:58 am REASON FOR STUDY: cough fever COMPARISON: 10/15/2015. EXAM PARAMETERS: NUMBER OF VIEWS: two views TECHNIQUE: Digital Frontal and Lateral radiographic views of the chest acquired. RADIATION DOSE: NA LIMITATIONS: none FINDINGS: LUNGS AND PLEURA: Bilateral apical pleural thickening. No acute infiltrates or effusions. MEDIASTINUM AND HILAR STRUCTURES: No masses or contour abnormalities. HEART AND VASCULAR STRUCTURES: The heart is normal with aortic atherosclerosis. 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 Dorsal spondylosis. Multiple dorsal com pression deformities. Old healed fracture deformity right posterolateral 6 rib. HARDWARE: Changes of CABG. OTHER: No other significant finding. IMPRESSION: No acute disease. TECHNICAL DOCUMENTATION: JOB ID: [id number] [employer]- All Rights Reserved Reading location - IP/workstation name: [email or web address]
[2018-03-17 12:34] LABS: ABSOLUTE EOSINOPHILS # (AUTO) 0.2 10^3/uL (0.0-0.6); ABSOLUTE LYMPHOCYTES (AUTO) 1.8 10^3/uL (0.5-4.7); ABSOLUTE MONOCYTES (AUTO) 0.8 10^3/uL (0.1-1.4); ABSOLUTE NEUT (AUTO) 3.6 10^3/uL (1.7-8.2); BASOPHILS % (AUTO) 0.6 % (0-2); EOSINOPHILS % (AUTO) 3.5 % (0-6); HEMOGLOBIN 11.6 g/dL (12.0-15.5); MEAN CORPUSCULAR HEMOGLOBIN 30.8 pg (27.0-33.4); MEAN CORPUSCULAR HGB CONC 33.2 g/dL (32.0-36.0); MEAN CORPUSCULAR VOLUME 93 fl (80-97); MONOCYTES % (AUTO) 12.6 % (3-13); PLATELET COUNT 277 10^3/uL (150-450); RED BLOOD COUNT 3.78 10^6/uL (3.72-5.28); RED CELL DISTRIBUTION WIDTH 14.3 % (11.5-14.0); SEGMENTED NEUTROPHILS % (AUTO) 55.3 % (42-78); TOTAL CELLS COUNTED % (AUTO) 100 %; WHITE BLOOD COUNT 6.4 10^3/uL (4.0-10.5)
[2018-03-17 12:40] LABS: APPEARANCE,URINE CLEAR; BILIRUBIN,URINE NEGATIVE (NEGATIVE); COLOR,URINE YELLOW; GLUCOSE, URINE NEGATIVE (NEGATIVE); KETONES,URINE TRACE mg/dL (NEGATIVE); LEUKOCYTE ESTERASE,URINE MODERATE (NEGATIVE); NITRITE,URINE NEGATIVE (NEGATIVE); PROTEIN,URINE 30 mg/dL (NEGATIVE); URINE SPECIFIC GRAVITY 1.015
[2018-03-17 12:49] LABS: RBCS (WET MOUNT) FEW RBCS SEEN; T.VAGINALIS (WET MOUNT) NO TRICHOMONAS SEEN; WBCS (WET MOUNT) 1+ WBCS SEEN; YEAST (WET MOUNT) NO YEAST SEEN
[2018-03-17 12:52] LABS: ALANINE AMINOTRANSFERASE 21 U/L (9-52); ALBUMIN 3.3 g/dL (3.5-5.0); ALKALINE PHOSPHATASE 36 U/L (38-126); ANION GAP 14 (5-19); ASPARTATE AMINO TRANSFERASE 38 U/L (14-36); BILIRUBIN,DIRECT 0.6 mg/dL (0.0-0.4); BILIRUBIN,TOTAL 0.9 mg/dL (0.2-1.3); BLOOD UREA NITROGEN 22 mg/dL (7-20); CALCIUM 9.2 mg/dL (8.4-10.2); CARBON DIOXIDE 23 mmol/L (22-30); CHLORIDE 104 mmol/L (98-107); CREATINE KINASE 173 U/L (30-135); GLUCOSE 82 mg/dL (75-110); LIPASE 36.4 U/L (23-300); POTASSIUM 3.6 mmol/L (3.6-5.0); TOTAL PROTEIN 6.7 g/dL (6.3-8.2)
[2018-03-17 13:04] LABS: CREATINE KINASE MB 3.35 ng/mL (<4.55)
[2018-03-17 13:06] LABS: TROPONIN I 0.046 ng/mL
--- NOTE | 2018-03-17 13:12 | EKG REPORT ---
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
[2018-03-17] MEDS ORDERED: CEFTRIAXONE 1 GM/D5W RTU 1 GM/50 ML RTUPB IV ONE (13:29)
--- NOTE | 2018-03-17 15:49 | RADIOLOGY REPORT (SQ) ---
EXAM DESCRIPTION: CT ABD/PELVIS WITH IV ONLY COMPLETED DATE/TIME: 03/17/2018 3:28 pm REASON FOR STUDY: pain COMPARISON: None. TECHNIQUE: CT scan of the abdomen and pelvis performed using helical scanning technique with dynamic intravenous contrast injection. No oral contrast. Images reviewed with lung, soft tissue, and bone windows. Reconstructed coronal and sagittal MPR images reviewed. Delayed images for evaluation of the urinary system also acquired. All images stored on PACS. All CT scanners at this facility use dose modulation, iterative reconstruction, and/or weight based d osing when appropriate to reduce radiation dose to as low as reasonably achievable (ALARA). [facility]: Dose Right [facility]: CareDose [facility]: Dose Right [facility]: Teradose 4D [facility]: Ludei CONTRAST TYPE AND DOSE: contrast/concentration: Isovue 350.00 mg/ml; Total Contrast Delivered: 57.0 ml; Total Saline Delivered: 65.0 ml RENAL FUNCTION: Creatinine 0.89 RADIATION DOSE: CT Rad equipment meets quality standard of care and radiation dose reduction techniq ues were employed. CTDIvol: 9.3 - 12.3 mGy. DLP: 1197 mGy-cm.. LIMITATIONS: None. FINDINGS: LOWER CHEST: No significant findings. No nodules or infiltrates. Small hiatal hernia LIVER: Normal size. No masses. No dilated ducts. SPLEEN: Normal size. No focal lesions. PANCREAS: No masses. No significant calcifications. No adjacent inflammation or peripancreatic fluid collections. Pancreatic duct not dilated. GALLBLADDER: Multiple tiny radiopaque gallstones layer dependently in the gallbladder and in the gall bladder neck. Gallbladder is mildly distended without pericholecystic fluid ADRENAL GLANDS: No significant masses or asymmetry. RIGHT KIDNEY AND URETER: No solid masses. No significant calcifications. No hydronephrosis or hyd roureter. LEFT KIDNEY AND URETER: No solid masses. No significant calcifications. No hydronephrosis or hydr oureter. AORTA AND VESSELS: Heavily calcified abdominal aorta without aneurysm. Very heavily calcified origin s of the visceral arteries causing greater than 50% stenosis proximally RETROPERITONEUM: No retroperitoneal adenopathy, hemorrhage or masses. BOWEL AND PERITONEAL CAVITY: No CT evidence of free intraperitoneal air or fluid. No bowel obstructi on. APPENDIX: Normal. PELVIS: Streak artifact from bilateral total hip replacements. There is a pessary present. Bladder, uterus not well seen. No gross adenopathy or free fluid. ABDOMINAL WALL: No masses. No hernias. BONES: Chronic appearing T12 compression deformity with greater than 50% loss of height OTHER: No other significant finding. IMPRESSION: Multiple tiny gallstones in the gallbladder and gallbladder neck. Gallbladder mildly di stended without gross wall thickening. No CT evidence of acute pancreatitis. Other findings as above TECHNICAL DOCUMENTATION: JOB ID: [id number] Quality ID # [id number]: Final reports with documentation of one or more dose reduction techniques (e.g., Au tomated exposure control, adjustment of the mA and/or kV according to patient size, use of iterative reconstruction technique) 2010 [employer]- All Rights Reserved Reading location - IP/workstation name: [email or web address]
[2018-03-17] MEDS ORDERED: CEFTRIAXONE SODIUM 1,000 MG in NORMAL SALINE 50 ML IV ONE (16:00)
[2018-03-17] MEDS ORDERED: ONDANSETRON 4 MG TAB.RAPDIS PO PRN (16:09)
[2018-03-17] MEDS ORDERED: ACETAMINOPHEN 325 MG TABLET PO PRN (16:09)
[2018-03-17] MEDS ORDERED: HYDRALAZINE HCL INJ/PF 20 MG/1 ML SDV IV PRN (16:48)
[2018-03-17] MEDS ORDERED: DEXTROSE 50%-WATER 25 GM/50 ML DISP.SYRIN IV PRN ×2 (16:50)
[2018-03-17] MEDS ORDERED: GLUCAGON,HUMAN RECOMB 1 MG INJ IM PRN (16:50)
[2018-03-17] MEDS ORDERED: DEXTROSE 40% GEL 15 GM TUBE PO PRN ×2 (16:50)
[2018-03-17] MEDS: NORMAL SALINE 1000 ML 1,000 ML IV PRN (18:29)
[2018-03-17 21:52] LABS: CREATINE KINASE MB 2.53 ng/mL (<4.55); TROPONIN I 0.032 ng/mL
[2018-03-18 05:18] LABS: ABSOLUTE EOSINOPHILS # (AUTO) 0.2 10^3/uL (0.0-0.6); ABSOLUTE LYMPHOCYTES (AUTO) 1.6 10^3/uL (0.5-4.7); ABSOLUTE MONOCYTES (AUTO) 0.8 10^3/uL (0.1-1.4); ABSOLUTE NEUT (AUTO) 3.6 10^3/uL (1.7-8.2); BASOPHILS % (AUTO) 0.4 % (0-2); EOSINOPHILS % (AUTO) 2.9 % (0-6); HEMATOCRIT 34.6 % (36.0-47.0); HEMOGLOBIN 11.4 g/dL (12.0-15.5); LYMPHOCYTES % (AUTO) 25.4 % (13-45); MEAN CORPUSCULAR HEMOGLOBIN 30.6 pg (27.0-33.4); MEAN CORPUSCULAR VOLUME 93 fl (80-97); MONOCYTES % (AUTO) 12.7 % (3-13); PLATELET COUNT 260 10^3/uL (150-450); RED BLOOD COUNT 3.73 10^6/uL (3.72-5.28); RED CELL DISTRIBUTION WIDTH 14.1 % (11.5-14.0); SEGMENTED NEUTROPHILS % (AUTO) 58.6 % (42-78); TOTAL CELLS COUNTED % (AUTO) 100 %; WHITE BLOOD COUNT 6.2 10^3/uL (4.0-10.5)
[2018-03-18 05:37] LABS: ALANINE AMINOTRANSFERASE 23 U/L (9-52); ALKALINE PHOSPHATASE 36 U/L (38-126); ANION GAP 14 (5-19); ASPARTATE AMINO TRANSFERASE 36 U/L (14-36); BILIRUBIN,DIRECT 0.5 mg/dL (0.0-0.4); BILIRUBIN,TOTAL 0.7 mg/dL (0.2-1.3); BLOOD UREA NITROGEN 16 mg/dL (7-20); CALCIUM 8.8 mg/dL (8.4-10.2); CARBON DIOXIDE 22 mmol/L (22-30); CHLORIDE 103 mmol/L (98-107); CREATINE KINASE 99 U/L (30-135); GLUCOSE 181 mg/dL (75-110); IRON(TIBC) 59.3 ug/dL (37-170); SODIUM 139.1 mmol/L (137-145); TOTAL PROTEIN 6.4 g/dL (6.3-8.2)
[2018-03-18 05:43] LABS: CREATINE KINASE MB 2.03 ng/mL (<4.55); TROPONIN I 0.032 ng/mL
[2018-03-18] MEDS: LANSOPRAZOLE 30 MG TAB.RAP.DR PO SCH (06:14)
[2018-03-18 06:56] LABS: FOLATE > 20.00 ng/mL (>2.76)
--- NOTE | 2018-03-18 07:24 | EKG REPORT ---
SEVERITY:- ABNORMAL ECG - SINUS RHYTHM WITH PAC. RBBB AND LAFB PROBABLE LVH WITH SECONDARY REPOL ABNRM DIFFUSE ANTEROLATERAL ST - T DEPRESSION ,NEED TO R/O L MAIN DISEASE. : Confirmed by: Kirill Noble MD 18-Mar-2018 07:24:01
--- NOTE | 2018-03-18 07:26 | EKG REPORT ---
SEVERITY:- ABNORMAL ECG - SINUS RHYTHM RBBB AND LAFB DIFFUSE ST-T DEPRESSION ANTEROLATERAL LEADS UNCHANGED FROM 10/15/15 EKG. : Confirmed by: Kirill Noble MD 18-Mar-2018 07:25:18
[2018-03-18] MEDS: INSULIN LISPRO 100 UNIT/ML 3 ML VIAL SUBCUT PRN (09:23)
[2018-03-18] MEDS: ENOXAPARIN SODIUM INJ 40 MG/0.4 ML DISP.SYRIN SUBCUT SCH (09:35)
--- NOTE | 2018-03-18 09:47 | PDOC H&P ---
History of Present Illness Admission Date/PCP: 03/17/2018 SHAYY FLORES MD Patient complains of: Weakness History of Present Illness: KAILA ANDRADE is a 87 year old female with a past medical history significant for coronary artery disease, diabetes mellitus, hypertension and GERD. She has a history of SLE and is maintained on daily prednisone. She presented to the emergency room with a several day history of weakness and decreased appetite. She was having difficulty walking at home. In the emergency room she was found to have evidence of urinary tract infection and she had an indeterminate troponin. She was referred for admission Past Medical History Cardiac Medical History: Reports: Congestive Heart Failure, Myocardial Infarction - x2, Hypertension Pulmonary Medical History: Reports: Pneumonia EENT Medical History: Reports: None Neurological Medical History: Reports: None Endocrine Medical History: Reports: Diabetes Mellitus Type 2 Renal/ Medical History: Reports: None Malignancy Medical History: Reports: None GI Medical History: Reports: Gastroesophageal Reflux Disease Musculoskeltal Medical History: Reports: Arthritis Psychiatric Medical History: Reports: Depression Traumatic Medical History: Reports: None Hematology: Denies: Anemia Infectious Medical History: Reports: None Past Surgical History Past Surgical History: Reports: Coronary Artery Bypass Graft, Orthopedic Surgery - bilateral hip replacement, WISHES TO F/U W/ HER ORTHO IN [place] Social History Information Source: Patient Lives with: Alone Smoking Status: Never Smoker Frequency of Alcohol Use: None Hx Recreational Drug Use: No Drugs: None Hx Prescription Drug Abuse: No Family History Family History: Reviewed & Not Pertinent Parental Family History Reviewed: Yes Children Family History Reviewed: Yes Sibling(s) Family History Reviewed.: Yes Medication/Allergy Allergies/Adverse Reactions: simvastatin [From Zocor] Allergy (Verified 10/15/15 16:16) Generalized Itching Review of Systems Constitutional: PRESENT: anorexia, fatigue, weakness. ABSENT: chills, fever(s) , headache(s) Eyes: ABSENT: visual disturbances Ears: ABSENT: hearing changes Nose, Mouth, and Throat: ABSENT: headache(s), sore throat Cardiovascular: ABSENT: chest pain, dyspnea on exertion, orthropnea, palpitations Respiratory: ABSENT: cough, dyspnea Gastrointestinal: PRESENT: abdominal pain, constipation. ABSENT: diarrhea, dysphagia, heartburn, hematemesis, hematochezia, melena, nausea, vomiting Genitourinary: PRESENT: dysuria, other - She has urinary frequency. ABSENT: difficulty urinating, hematuria Musculoskeletal: PRESENT: back pain. ABSENT: joint swelling Integumentary: ABSENT: rash, wounds Neurological: PRESENT: weakness, other - She states she has felt somewhat dizzy. ABSENT: abnormal gait, abnormal speech, confusion, dizziness, focal weakness, syncope Psychiatric: ABSENT: anxiety, depression, homidical ideation, suicidal ideation Endocrine: ABSENT: cold intolerance, heat intolerance, polydipsia, polyuria Hematologic/Lymphatic: ABSENT: easy bleeding, easy bruising Physical Exam Vital Signs: Temp Pulse Resp BP Pulse Ox 97.4 F 75 16 164/67 H 97 03/17/18 11:04 03/17/18 11:04 03/17/18 11:04 03/17/18 11:04 03/17/18 11:04 Intake & Output 03/16/18 03/17/18 03/18/18 06:59 06:59 06:59 Weight 52.617 kg General appearance: PRESENT: no acute distress, cooperative, thin Head exam: PRESENT: atraumatic, normocephalic Eye exam: PRESENT: conjunctiva pink, EOMI, PERRLA. ABSENT: scleral icterus Ear exam: PRESENT: normal external ear exam Mouth exam: PRESENT: dry mucosa, tongue midline Neck exam: ABSENT: carotid bruit, JVD, lymphadenopathy, thyromegaly Respiratory exam: PRESENT: clear to auscultation lina. ABSENT: rales, rhonchi, wheezes Cardiovascular exam: PRESENT: RRR. ABSENT: diastolic murmur, rubs, systolic murmur Pulses: PRESENT: normal dorsalis pedis pul GI/Abdominal exam: PRESENT: normal bowel sounds, soft, tenderness - She has diffuse mild tenderness. ABSENT: distended, guarding, mass, organolmegaly, rebound Rectal exam: PRESENT: deferred Extremities exam: PRESENT: full ROM. ABSENT: calf tenderness, clubbing, pedal edema Neurological exam: PRESENT: alert, awake, oriented to person, oriented to place , oriented to time, oriented to situation, CN II-XII grossly intact. ABSENT: motor sensory deficit Psychiatric exam: PRESENT: appropriate affect, normal mood. ABSENT: homicidal ideation, suicidal ideation Skin exam: PRESENT: dry, intact, warm. ABSENT: cyanosis, rash Results Laboratory Results: 03/17/18 12:10 03/17/18 12:10 03/17/18 03/17/18 03/17/18 12:10 12:10 12:10 WBC 6.4 RBC 3.78 Hgb 11.6 L Hct 35.0 L MCV 93 MCH 30.8 MCHC 33.2 RDW 14.3 H Plt Count 277 Seg Neutrophils % 55.3 Lymphocytes % 28.0 Monocytes % 12.6 Eosinophils % 3.5 Basophils % 0.6 Absolute Neutrophils 3.6 Absolute Lymphocytes 1.8 Absolute Monocytes 0.8 Absolute Eosinophils 0.2 Absolute Basophils 0.0 Sodium 141.0 Potassium 3.6 Chloride 104 Carbon Dioxide 23 Anion Gap 14 BUN 22 H Creatinine 0.89 Est GFR ( Amer) > 60 Est GFR (Non-Af Amer) > 60 Glucose 82 Calcium 9.2 Total Bilirubin 0.9 AST 38 H ALT 21 Alkaline Phosphatase 36 L Total Protein 6.7 Albumin 3.3 L Lipase 36.4 Urine Color YELLOW Urine Appearance CLEAR Urine pH 7.0 Ur Specific [place] 1.015 Urine Protein 30 H Urine Glucose (UA) NEGATIVE Urine Ketones TRACE H Urine Blood NEGATIVE Urine Nitrite NEGATIVE Ur Leukocyte Esterase MODERATE H Urine WBC (Auto) 22 Urine RBC (Auto) 1 03/17/18 03/17/18 12:10 12:10 Creatine Kinase 173 H CK-MB (CK-2) 3.35 Troponin I 0.046 Impressions: Chest X-Ray 03/17/18 11:31 IMPRESSION: No acute disease. Abdomen/Pelvis CT 03/17/18 12:59 IMPRESSION: Multiple tiny gallstones in the gallbladder and gallbladder neck. Gallbladder mildly distended without gross wall thickening. No CT evidence of acute pancreatitis. Other findings as above Assessment & Plan - Diagnosis (1) UTI (urinary tract infection) Qualifiers: Urinary tract infection type: site unspecified Hematuria presence: without hematuria Qualified Code(s): N39.0 - Urinary tract infection, site not specified Is this a current diagnosis for this admission?: Yes Plan: Urine culture is pending. She has been given 1 dose of IV Rocephin in the emergency room. We will continue this. Certainly her urinary tract infection is likely the cause of her weakness. (2) Elevated troponin Is this a current diagnosis for this admission?: Yes Plan: The patient had an indeterminate troponin. She denies any chest pain or increased shortness of breath. She is asymptomatic. Interestingly should her renal function is normal. She has no signs of decompensated heart failure. We are going to trend these overnight. (3) Anemia Is this a current diagnosis for this admission?: Yes Plan: She has a normocytic anemia consistent with chronic disease. The patient also takes iron so she likely has an element of iron deficiency as well. We will check a CBC in the morning. I will get an anemia panel. She might benefit from a dose of IV iron during this hospitalization. (4) Coronary artery disease Is this a current diagnosis for this admission?: Yes Plan: Once the patient's medications get entered into the computer we will start her on her home regimen. She has no complaints of chest pain. She does have an indeterminate troponin which will be trended overnight. I will get an EKG in the morning as well. (5) Hypertension Is this a current diagnosis for this admission?: Yes Plan: Blood pressure is a little high. I do not know if she is gotten her medications today. She will have IV hydralazine available as needed. We will start her on her home regimen soon as the medications get reconciled. (6) Diabetes Is this a current diagnosis for this admission?: Yes Plan: I will hold her home medications and she will have sliding scale available here in the hospital. (7) SLE (systemic lupus erythematosus) Is this a current diagnosis for this admission?: Yes Plan: She will continue her home dose of daily prednisone. (8) GERD (gastroesophageal reflux disease) Is this a current diagnosis for this admission?: Yes Plan: She will be started on Prevacid. She takes omeprazole at home. (9) Cholelithiasis Is this a current diagnosis for this admission?: Yes Plan: This was noted on CT scan of the abdomen and pelvis. There was no evidence of acute cholecystitis. (10) Chronic pain Is this a current diagnosis for this admission?: Yes Plan: Adequately controlled at this point. (11) Opiate dependence, continuous Is this a current diagnosis for this admission?: Yes Plan: Chronic pain with continuous narcotic use. The patient uses a fentanyl patch at home. She also has oxycodone available for breakthrough pain. We will continue her on her home medication. (12) Ambulatory dysfunction Is this a current diagnosis for this admission?: Yes Plan: The patient has been weak and lives alone. I do believe from the ED doctor that the family is interested in potential rehab. We will see how she does with physical therapy after treatment. - Time Time Spent: 50 to 70 Minutes - Inpatient Certification Medical Necessity: Need For IV Fluids, Need for IV Antibiotics, Other - I am going to admit this patient as an inpatient. She has weakness from a urinary tract infection but she has multiple comorbidities. She has an indeterminate troponin that needs to be trended for the next 24 hours. She also has a urinary tract infection requiring parenteral antibiotics. I am going to hydrate her with IV fluids overnight. She is chronically on prednisone and is somewhat immunosuppressed. She could have a more complicated infection. I believe her hospitalization is going to span greater than 2 midnights.
[2018-03-18] MEDS ORDERED: CEFTRIAXONE 1 GM/D5W RTU 1 GM/50 ML RTUPB IV SCH (10:00)
[2018-03-18] MEDS: NORMAL SALINE 1000 ML 1,000 ML IV PRN (15:17)
[2018-03-18] MEDS ORDERED: PROMETHAZINE HCL 25 MG TABLET PO PRN (15:28)
--- NOTE | 2018-03-18 15:30 | PDOC PROGRESS REPORT ---
Subjective Progress Note for:: 03/18/18 Subjective:: Doing better. Denies fever or chills. He denies symptoms improving. No nausea vomiting. Still feels generally weak, but slowly improving. Reason For Visit: UTI Physical Exam Vital Signs: Temp Pulse Resp BP Pulse Ox 98.3 F 83 14 156/51 H 97 03/18/18 11:39 03/18/18 11:39 03/18/18 11:39 03/18/18 11:39 03/18/18 11:39 Intake & Output 03/17/18 03/18/18 03/19/18 06:59 06:59 06:59 Intake Total 800 Balance 800 Weight 60.2 kg GEN: NAD, elderly female, well-developed, well-nourished CV: RRR, NL S1S2 LUNGS: CTA bilaterally ABDOMEN Soft, NT, +BS EXTERMITIES: No e/c/c NEURO: Alert, oriented 3, nonfocal Results Laboratory Results: 03/18/18 04:35 03/18/18 04:35 03/18/18 03/18/18 03/18/18 04:35 04:35 04:35 WBC 6.2 RBC 3.73 Hgb 11.4 L Hct 34.6 L MCV 93 MCH 30.6 MCHC 33.0 RDW 14.1 H Plt Count 260 Seg Neutrophils % 58.6 Lymphocytes % 25.4 Monocytes % 12.7 Eosinophils % 2.9 Basophils % 0.4 Absolute Neutrophils 3.6 Absolute Lymphocytes 1.6 Absolute Monocytes 0.8 Absolute Eosinophils 0.2 Absolute Basophils 0.0 Retic Count (auto) 3.20 H Absolute Retic 0.120 Sodium 139.1 Potassium 4.0 Chloride 103 Carbon Dioxide 22 Anion Gap 14 BUN 16 Creatinine 0.75 Est GFR ( Amer) > 60 Est GFR (Non-Af Amer) > 60 Glucose 181 H Calcium 8.8 Magnesium 1.7 Iron 59.3 TIBC 230 L % Saturation 26 Ferritin 1370.00 H Total Bilirubin 0.7 AST 36 ALT 23 Alkaline Phosphatase 36 L Total Protein 6.4 Albumin 3.0 L Vitamin B12 400.0 Folate > 20.00 TSH 3.26 03/17/18 03/17/18 03/18/18 20:33 20:33 04:35 Creatine Kinase 119 99 CK-MB (CK-2) 2.53 Troponin I 0.032 03/18/18 04:35 Creatine Kinase CK-MB (CK-2) 2.03 Troponin I 0.032 Impressions: Chest X-Ray 03/17/18 11:31 IMPRESSION: No acute disease. Abdomen/Pelvis CT 03/17/18 12:59 IMPRESSION: Multiple tiny gallstones in the gallbladder and gallbladder neck. Gallbladder mildly distended without gross wall thickening. No CT evidence of acute pancreatitis. Other findings as above Assessment & Plan - Plan Summary Plan Summary: (1) UTI (urinary tract infection) Qualifiers: Urinary tract infection type: site unspecified Hematuria presence: without hematuria Qualified Code(s): N39.0 - Urinary tract infection, site not specified Is this a current diagnosis for this admission?: Yes Plan: This is likely the cause of her weakness. Urine culture is pending. Will continue Rocephin IV for now. (2) Elevated troponin Is this a current diagnosis for this admission?: Yes Plan: The patient had an indeterminate troponin. Patient denies chest pain and troponins have remained flat. We will treat with aspirin 81 mg p.o. daily. Will also resume patient's home beta blockers. (3) Anemia Is this a current diagnosis for this admission?: Yes Plan: She has a normocytic anemia consistent with chronic disease. The patient also takes iron so she likely has an element of iron deficiency as well. CBC is stable. (4) Coronary artery disease Is this a current diagnosis for this admission?: Yes Plan: Stable. Treated with aspirin, resume beta blockers. (5) Hypertension Is this a current diagnosis for this admission?: Yes Plan: Stable. Resume home meds. (6) Diabetes Is this a current diagnosis for this admission?: Yes Plan: I will continue sliding scale available here in the hospital. (7) SLE (systemic lupus erythematosus) Is this a current diagnosis for this admission?: Yes Plan: She will continue her home dose of daily prednisone. (8) GERD (gastroesophageal reflux disease) Is this a current diagnosis for this admission?: Yes Plan: She will be continued on Prevacid. She takes omeprazole at home. (9) Cholelithiasis Is this a current diagnosis for this admission?: Yes Plan: This was noted on CT scan of the abdomen and pelvis. There was no evidence of acute cholecystitis. (10) Chronic pain Is this a current diagnosis for this admission?: Yes Plan: Adequately controlled at this point. (11) Opiate dependence, continuous Is this a current diagnosis for this admission?: Yes Plan: Chronic pain with continuous narcotic use. The patient uses a fentanyl patch at home. She also has oxycodone available for breakthrough pain. We will continue her on her home medication. (12) Ambulatory dysfunction Is this a current diagnosis for this admission?: Yes Plan: The patient has been weak and lives alone. Family apparently interested in potential rehab. We will see how she does with physical therapy after treatment.
[2018-03-18] MEDS: ASPIRIN 81 MG TABLET, ENT COATED PO SCH (16:27)
[2018-03-18] MEDS: FERROUS SULFATE 325 MG TABLET PO SCH ×2 (17:16→21:54)
[2018-03-18] MEDS: CEFTRIAXONE SODIUM 1,000 MG in NORMAL SALINE 50 ML IV SCH (17:17)
[2018-03-18] MEDS ORDERED: CEFTRIAXONE SODIUM 1,000 MG in DEXTROSE 5%-WATER 50 ML IV SCH (18:00)
[2018-03-18] MEDS: METOPROLOL TARTRATE 25 MG TABLET PO SCH (21:54)
[2018-03-18] MEDS: PREDNISONE 5 MG TABLET PO SCH (21:55)
[2018-03-18] MEDS: ALPRAZOLAM 0.25 MG TABLET PO SCH (21:56)
[2018-03-18] MEDS ORDERED: PREDNISONE 7.5 MG PO SCH (22:00)
[2018-03-19 05:09] LABS: ABSOLUTE MONOCYTES (AUTO) 0.2 10^3/uL (0.1-1.4); ABSOLUTE NEUT (AUTO) 3.4 10^3/uL (1.7-8.2); BASOPHILS % (AUTO) 0.5 % (0-2); EOSINOPHILS % (AUTO) 0.2 % (0-6); HEMATOCRIT 32.1 % (36.0-47.0); HEMOGLOBIN 10.7 g/dL (12.0-15.5); LYMPHOCYTES % (AUTO) 20.7 % (13-45); MEAN CORPUSCULAR HEMOGLOBIN 31.1 pg (27.0-33.4); MEAN CORPUSCULAR HGB CONC 33.3 g/dL (32.0-36.0); MEAN CORPUSCULAR VOLUME 93 fl (80-97); MONOCYTES % (AUTO) 4.6 % (3-13); PLATELET COUNT 245 10^3/uL (150-450); RED BLOOD COUNT 3.44 10^6/uL (3.72-5.28); RED CELL DISTRIBUTION WIDTH 14.1 % (11.5-14.0); TOTAL CELLS COUNTED % (AUTO) 100 %; WHITE BLOOD COUNT 4.6 10^3/uL (4.0-10.5)
[2018-03-19 05:34] LABS: ANION GAP 11 (5-19); BLOOD UREA NITROGEN 11 mg/dL (7-20); CARBON DIOXIDE 22 mmol/L (22-30); CHLORIDE 107 mmol/L (98-107); GLUCOSE 193 mg/dL (75-110); POTASSIUM 4.3 mmol/L (3.6-5.0); SODIUM 139.7 mmol/L (137-145)
[2018-03-19] MEDS: LANSOPRAZOLE 30 MG TAB.RAP.DR PO SCH (05:43)
[2018-03-19] MEDS: NORMAL SALINE 1000 ML 1,000 ML IV PRN (05:44)
[2018-03-19] MEDS: PAROXETINE HCL 20 MG TABLET PO SCH (09:40)
[2018-03-19] MEDS: ASPIRIN 81 MG TABLET, ENT COATED PO SCH (09:40)
[2018-03-19] MEDS: METOPROLOL TARTRATE 25 MG TABLET PO SCH ×2 (09:40→22:13)
[2018-03-19] MEDS: ENOXAPARIN SODIUM INJ 40 MG/0.4 ML DISP.SYRIN SUBCUT SCH (09:45)
[2018-03-19] MEDS ORDERED: FENTANYL 12 MCG/HR PATCH.TD72 TOP SCH (10:00)
[2018-03-19] MEDS: ISOSORBIDE MONONITRATE 30 MG TAB.ER.24H PO SCH (11:36)
[2018-03-19] MEDS: AMLODIPINE BESYLATE 5 MG TABLET PO SCH (11:36)
[2018-03-19] MEDS: FERROUS SULFATE 325 MG TABLET PO SCH ×3 (11:36→22:13)
[2018-03-19] MEDS: ALPRAZOLAM 0.25 MG TABLET PO SCH ×2 (11:37→22:13)
[2018-03-19] MEDS: LEVOTHYROXINE SODIUM 0.025 MG TABLET PO SCH (11:37)
--- NOTE | 2018-03-19 13:43 | PDOC PROGRESS REPORT ---
Subjective Progress Note for:: 03/19/18 Subjective:: 87-year-old female with history of CAD, diabetes, SE and maintained on daily prednisone, admitted after presenting for weakness and difficulty ambulating and patient was found to have UTI. Today she reports doing better. Still weak. Appetite slightly better. No chest pain or shortness of breath or palpitations. Denies fever or chills. She has been evaluated by physical therapist. Reason For Visit: UTI Physical Exam Vital Signs: Temp Pulse Resp BP Pulse Ox 98.4 F 86 19 141/50 H 100 03/19/18 11:19 03/19/18 11:19 03/19/18 11:19 03/19/18 11:19 03/19/18 11:19 Intake & Output 03/18/18 03/19/18 03/20/18 06:59 06:59 06:59 Intake Total 1954 Balance 1954 Weight 60.2 kg 62 kg GEN: NAD, elderly female, well-developed, well-nourished CV: RRR, NL S1S2 LUNGS: CTA bilaterally ABDOMEN Soft, NT, +BS EXTERMITIES: No e/c/c NEURO: Alert, oriented 3, generalized weakness but no focal weakness Results Laboratory Results: 03/19/18 03:55 03/19/18 03:55 03/19/18 03/19/18 03/19/18 03:55 03:55 09:02 WBC 4.6 RBC 3.44 L Hgb 10.7 L Hct 32.1 L MCV 93 MCH 31.1 MCHC 33.3 RDW 14.1 H Plt Count 245 Seg Neutrophils % 74.0 Lymphocytes % 20.7 Monocytes % 4.6 Eosinophils % 0.2 Basophils % 0.5 Absolute Neutrophils 3.4 Absolute Lymphocytes 1.0 Absolute Monocytes 0.2 Absolute Eosinophils 0.0 Absolute Basophils 0.0 Sodium 139.7 Potassium 4.3 Chloride 107 Carbon Dioxide 22 Anion Gap 11 BUN 11 Creatinine 0.69 Est GFR ( Amer) > 60 Est GFR (Non-Af Amer) > 60 Glucose 193 H Calcium 8.0 L Ionized Calcium Radha 1.12 L Magnesium 1.8 03/17/18 03/17/18 03/18/18 20:33 20:33 04:35 Creatine Kinase 119 99 CK-MB (CK-2) 2.53 Troponin I 0.032 03/18/18 03/18/18 04:35 14:30 Creatine Kinase CK-MB (CK-2) 2.03 Troponin I 0.032 0.027 Impressions: Chest X-Ray 03/17/18 11:31 IMPRESSION: No acute disease. Abdomen/Pelvis CT 03/17/18 12:59 IMPRESSION: Multiple tiny gallstones in the gallbladder and gallbladder neck. Gallbladder mildly distended without gross wall thickening. No CT evidence of acute pancreatitis. Other findings as above Assessment & Plan - Plan Summary Plan Summary: (1) UTI (urinary tract infection) Qualifiers: Urinary tract infection type: site unspecified Hematuria presence: without hematuria Qualified Code(s): N39.0 - Urinary tract infection, site not specified Is this a current diagnosis for this admission?: Yes Plan: This is likely contributory to her weakness. Urine culture is pending. Will continue Rocephin IV for now. (2) Elevated troponin Is this a current diagnosis for this admission?: Yes Plan: The patient had an indeterminate troponin. Patient denies chest pain and troponins have remained flat. We will continue to treat with aspirin 81 mg p.o. daily. atient's home beta blockers was also resumed. (3) Anemia Is this a current diagnosis for this admission?: Yes Plan: She has a normocytic anemia consistent with chronic disease. The patient also takes iron so she likely has an element of iron deficiency as well. CBC is fairly stable. (4) Coronary artery disease Is this a current diagnosis for this admission?: Yes Plan: Stable. Treated with aspirin, resumption of beta blockers. (5) Hypertension Is this a current diagnosis for this admission?: Yes Plan: Stable. Continue home meds. (6) Diabetes Is this a current diagnosis for this admission?: Yes Plan: I will continue sliding scale available here in the hospital. (7) SLE (systemic lupus erythematosus) Is this a current diagnosis for this admission?: Yes Plan: She will continue her home dose of daily prednisone. (8) GERD (gastroesophageal reflux disease) Is this a current diagnosis for this admission?: Yes Plan: She will be continued on Prevacid. She takes omeprazole at home. (9) Cholelithiasis Is this a current diagnosis for this admission?: Yes Plan: This was noted on CT scan of the abdomen and pelvis. There was no evidence of acute cholecystitis. (10) Chronic pain Is this a current diagnosis for this admission?: Yes Plan: Adequately controlled at this point. (11) Opiate dependence, continuous Is this a current diagnosis for this admission?: Yes Plan: Chronic pain with continuous narcotic use. The patient uses a fentanyl patch at home. She also has oxycodone available for breakthrough pain. We will continue her on her home medication. (12) Ambulatory dysfunction Is this a current diagnosis for this admission?: Yes Plan: The patient has been weak and lives alone. Family apparently interested in potential rehab. She is being evaluated by physical therapy. 12) Hypocalcemia Is this a current diagnosis for this admission?: Yes Plan: Patient has low albumin of 3, both and his calcium checked on also slightly low. Will further work-up by checking vitamin D and PTH levels.
[2018-03-19] MEDS: INSULIN LISPRO 100 UNIT/ML 3 ML VIAL SUBCUT PRN (17:15)
[2018-03-19] MEDS: CEFTRIAXONE SODIUM 1,000 MG in NORMAL SALINE 50 ML IV SCH (17:44)
[2018-03-19] MEDS: PREDNISONE 5 MG TABLET PO SCH (22:13)
[2018-03-20 05:47] LABS: ABSOLUTE EOSINOPHILS # (AUTO) 0.1 10^3/uL (0.0-0.6); ABSOLUTE LYMPHOCYTES (AUTO) 0.9 10^3/uL (0.5-4.7); ABSOLUTE MONOCYTES (AUTO) 0.2 10^3/uL (0.1-1.4); ABSOLUTE NEUT (AUTO) 3.4 10^3/uL (1.7-8.2); BASOPHILS % (AUTO) 0.4 % (0-2); EOSINOPHILS % (AUTO) 1.1 % (0-6); HEMATOCRIT 31.8 % (36.0-47.0); HEMOGLOBIN 10.4 g/dL (12.0-15.5); MEAN CORPUSCULAR HEMOGLOBIN 30.7 pg (27.0-33.4); MEAN CORPUSCULAR HGB CONC 32.8 g/dL (32.0-36.0); MEAN CORPUSCULAR VOLUME 94 fl (80-97); MONOCYTES % (AUTO) 4.5 % (3-13); PLATELET COUNT 249 10^3/uL (150-450); RED CELL DISTRIBUTION WIDTH 14.4 % (11.5-14.0); TOTAL CELLS COUNTED % (AUTO) 100 %; WHITE BLOOD COUNT 4.6 10^3/uL (4.0-10.5)
[2018-03-20 06:08] LABS: ANION GAP 10 (5-19); BLOOD UREA NITROGEN 13 mg/dL (7-20); CALCIUM 7.7 mg/dL (8.4-10.2); CARBON DIOXIDE 23 mmol/L (22-30); CHLORIDE 110 mmol/L (98-107); GLUCOSE 213 mg/dL (75-110); POTASSIUM 4.6 mmol/L (3.6-5.0); SODIUM 142.8 mmol/L (137-145)
[2018-03-20] MEDS: LANSOPRAZOLE 30 MG TAB.RAP.DR PO SCH (06:36)
[2018-03-20] MEDS: NORMAL SALINE 1000 ML 1,000 ML IV PRN ×2 (06:37→21:16)
[2018-03-20] MEDS: INSULIN LISPRO 100 UNIT/ML 3 ML VIAL SUBCUT PRN (08:59)
[2018-03-20] MEDS: LEVOTHYROXINE SODIUM 0.025 MG TABLET PO SCH (11:40)
[2018-03-20] MEDS: FERROUS SULFATE 325 MG TABLET PO SCH ×3 (11:40→21:01)
[2018-03-20] MEDS: METOPROLOL TARTRATE 25 MG TABLET PO SCH ×2 (11:40→21:00)
[2018-03-20] MEDS: ALPRAZOLAM 0.25 MG TABLET PO SCH ×2 (11:40→21:00)
[2018-03-20] MEDS: AMLODIPINE BESYLATE 5 MG TABLET PO SCH (11:40)
[2018-03-20] MEDS: PAROXETINE HCL 20 MG TABLET PO SCH (11:40)
[2018-03-20] MEDS: ISOSORBIDE MONONITRATE 30 MG TAB.ER.24H PO SCH (11:40)
[2018-03-20] MEDS: ENOXAPARIN SODIUM INJ 40 MG/0.4 ML DISP.SYRIN SUBCUT SCH (11:41)
[2018-03-20] MEDS: ASPIRIN 81 MG TABLET, ENT COATED PO SCH (11:44)
[2018-03-20] MEDS ORDERED: HYDROXYZINE PAMOATE 25 MG CAPSULE PO PRN (15:07)
--- NOTE | 2018-03-20 17:45 | PDOC PROGRESS REPORT ---
Subjective Progress Note for:: 03/20/18 Subjective:: Patient admitted with weakness and difficulty ambulating and has been treated for urinary tract infection. Urine culture has been negative as well as blood cultures. Patient is feeling better. There is no fever chills Reason For Visit: UTI Physical Exam Vital Signs: Temp Pulse Resp BP Pulse Ox 98.1 F 79 19 134/54 H 96 03/20/18 16:00 03/20/18 16:00 03/20/18 16:00 03/20/18 16:00 03/20/18 16:00 Intake & Output 03/19/18 03/20/18 03/21/18 06:59 06:59 06:59 Intake Total 1954 1430 300 Output Total 300 Balance 1954 1430 0 Weight 62 kg 63.5 kg General appearance: PRESENT: no acute distress, well-developed, well-nourished Head exam: PRESENT: atraumatic Eye exam: PRESENT: conjunctival injection Respiratory exam: PRESENT: clear to auscultation lina. ABSENT: rales, rhonchi, wheezes Cardiovascular exam: PRESENT: RRR. ABSENT: diastolic murmur, rubs, systolic murmur GI/Abdominal exam: PRESENT: normal bowel sounds, soft. ABSENT: distended, guarding, mass, organolmegaly, rebound, tenderness Rectal exam: PRESENT: deferred Neurological exam: PRESENT: alert, awake, oriented to person, oriented to place , oriented to time, oriented to situation, CN II-XII grossly intact. ABSENT: motor sensory deficit Psychiatric exam: PRESENT: appropriate affect Results Laboratory Results: 03/20/18 04:47 03/20/18 04:47 03/20/18 03/20/18 03/20/18 04:47 04:47 04:47 WBC 4.6 RBC 3.40 L Hgb 10.4 L Hct 31.8 L MCV 94 MCH 30.7 MCHC 32.8 RDW 14.4 H Plt Count 249 Seg Neutrophils % 74.0 Lymphocytes % 20.0 Monocytes % 4.5 Eosinophils % 1.1 Basophils % 0.4 Absolute Neutrophils 3.4 Absolute Lymphocytes 0.9 Absolute Monocytes 0.2 Absolute Eosinophils 0.1 Absolute Basophils 0.0 Sodium 142.8 Potassium 4.6 Chloride 110 H Carbon Dioxide 23 Anion Gap 10 BUN 13 Creatinine 0.71 Est GFR ( Amer) > 60 Est GFR (Non-Af Amer) > 60 Glucose 213 H Calcium 7.7 L Magnesium 1.9 03/17/18 03/17/18 03/18/18 20:33 20:33 04:35 Creatine Kinase 119 99 CK-MB (CK-2) 2.53 Troponin I 0.032 03/18/18 03/18/18 04:35 14:30 Creatine Kinase CK-MB (CK-2) 2.03 Troponin I 0.032 0.027 Impressions: Chest X-Ray 03/17/18 11:31 IMPRESSION: No acute disease. Abdomen/Pelvis CT 03/17/18 12:59 IMPRESSION: Multiple tiny gallstones in the gallbladder and gallbladder neck. Gallbladder mildly distended without gross wall thickening. No CT evidence of acute pancreatitis. Other findings as above Assessment & Plan - Time Time Spent with patient: 15-24 minutes Medications reviewed and adjusted accordingly: Yes Anticipated discharge: Acute Rehab Within: within 48 hours - Inpatient Certification Based on my medical assessment, after consideration of the patient's comorbidities, presenting symptoms, or acuity I expect that the services needed warrant INPATIENT care.: Yes Medical Necessity: Significant Comorbidiites Make Outpatient Treatment Too Risky , Need for IV Antibiotics - Plan Summary Plan Summary: 1. Urinary tract infection with negative culture. Patient has been on ceftriaxone will continue for now and transition to oral antibiotics on discharge. 2. Elevated troponin with no evidence of acute coronary syndrome. Continue with aspirin and beta-blockers no further intervention needed. 3. Anemia likely secondary to chronic disease 4. Stable coronary artery disease 5. Hypertension controlled 6. Type 2 diabetes mellitus on sliding scale insulin 7. Systemic lupus erythematosus on chronic daily prednisone 8. Continuous opiate dependence for chronic pain. She is on fentanyl patch as well as oxycodone for breakthrough symptoms next 9. Ambulatory dysfunction patient lives alone and family apparently interested in rehab discharge. Will discuss with nursing staff and physical therapy.
[2018-03-20] MEDS: CEFTRIAXONE SODIUM 1,000 MG in NORMAL SALINE 50 ML IV SCH (18:18)
[2018-03-20] MEDS: PREDNISONE 5 MG TABLET PO SCH (21:01)
[2018-03-21] MEDS: LANSOPRAZOLE 30 MG TAB.RAP.DR PO SCH (05:57)
[2018-03-21] MEDS: INSULIN LISPRO 100 UNIT/ML 3 ML VIAL SUBCUT PRN ×2 (08:55→11:44)
[2018-03-21] MEDS: NORMAL SALINE 1000 ML 1,000 ML IV PRN (11:37)
[2018-03-21] MEDS: METOPROLOL TARTRATE 25 MG TABLET PO SCH (11:46)
[2018-03-21] MEDS: LEVOTHYROXINE SODIUM 0.025 MG TABLET PO SCH (11:46)
[2018-03-21] MEDS: FERROUS SULFATE 325 MG TABLET PO SCH (11:46)
[2018-03-21] MEDS: ISOSORBIDE MONONITRATE 30 MG TAB.ER.24H PO SCH (11:46)
[2018-03-21] MEDS: ALPRAZOLAM 0.25 MG TABLET PO SCH (11:49)
[2018-03-21] MEDS: AMLODIPINE BESYLATE 5 MG TABLET PO SCH (11:49)
[2018-03-21] MEDS: PAROXETINE HCL 20 MG TABLET PO SCH (11:49)
[2018-03-21] MEDS: ENOXAPARIN SODIUM INJ 40 MG/0.4 ML DISP.SYRIN SUBCUT SCH (11:56)
[2018-03-21] MEDS: ASPIRIN 81 MG TABLET, ENT COATED PO SCH (11:58)
[2018-03-21] MEDS ORDERED: (PENDING PHARMACY ID) (Oxycodone Hcl/Acetaminophen [Oxycodon-Acetaminophen 7.5-325] 1 TAB) PO PRN (14:31)
--- NOTE | 2018-03-21 14:31 | PDOC PROGRESS REPORT ---
Subjective Progress Note for:: 03/21/18 Subjective:: Patient admitted with weakness and difficulty ambulating and has been treated for urinary tract infection. Urine culture has been negative as well as blood cultures. Patient is feeling better. There is no fever chills Patient was to be discharged home however reading from the chart including the H &P and the progress note before today it states the family is interested in rehab. Patient does say she can go back home alone. I called her son to discuss with him but I was unable to get in touch with him. I think is imperative to ensure that patient is discharged to a safe environment and the family is on board before she is discharged home Reason For Visit: UTI Physical Exam Vital Signs: Temp Pulse Resp BP Pulse Ox 98.3 F 82 14 176/62 H 99 03/21/18 11:37 03/21/18 11:37 03/21/18 11:37 03/21/18 11:37 03/21/18 11:37 Intake & Output 03/20/18 03/21/18 03/22/18 06:59 06:59 06:59 Intake Total 1430 1350 1000 Output Total 300 Balance 1430 1050 1000 Weight 63.5 kg 64.3 kg General appearance: PRESENT: no acute distress, well-developed, well-nourished Head exam: PRESENT: atraumatic, normocephalic Eye exam: PRESENT: conjunctiva pink, EOMI, PERRLA. ABSENT: scleral icterus Ear exam: PRESENT: normal external ear exam Mouth exam: PRESENT: moist, tongue midline Neck exam: ABSENT: carotid bruit, JVD, lymphadenopathy, thyromegaly Respiratory exam: PRESENT: clear to auscultation lina. ABSENT: rales, rhonchi, wheezes Cardiovascular exam: PRESENT: RRR. ABSENT: diastolic murmur, rubs, systolic murmur Pulses: PRESENT: normal dorsalis pedis pul Vascular exam: PRESENT: normal capillary refill GI/Abdominal exam: PRESENT: normal bowel sounds, soft. ABSENT: distended, guarding, mass, organolmegaly, rebound, tenderness Rectal exam: PRESENT: deferred Extremities exam: PRESENT: full ROM. ABSENT: calf tenderness, clubbing, pedal edema Neurological exam: PRESENT: alert, awake, oriented to person, oriented to place , oriented to time, CN II-XII grossly intact. ABSENT: motor sensory deficit Psychiatric exam: PRESENT: normal mood, suicidal ideation Skin exam: PRESENT: dry, intact, warm. ABSENT: cyanosis, rash Results Laboratory Results: 03/20/18 04:47 03/20/18 04:47 03/17/18 03/17/18 03/18/18 20:33 20:33 04:35 Creatine Kinase 119 99 CK-MB (CK-2) 2.53 Troponin I 0.032 03/18/18 03/18/18 04:35 14:30 Creatine Kinase CK-MB (CK-2) 2.03 Troponin I 0.032 0.027 Impressions: Chest X-Ray 03/17/18 11:31 IMPRESSION: No acute disease. Abdomen/Pelvis CT 03/17/18 12:59 IMPRESSION: Multiple tiny gallstones in the gallbladder and gallbladder neck. Gallbladder mildly distended without gross wall thickening. No CT evidence of acute pancreatitis. Other findings as above Assessment & Plan - Time Time Spent with patient: 15-24 minutes Medications reviewed and adjusted accordingly: Yes Anticipated discharge: Home with Homehealth, Acute Rehab Within: within 48 hours - Inpatient Certification Based on my medical assessment, after consideration of the patient's comorbidities, presenting symptoms, or acuity I expect that the services needed warrant INPATIENT care.: Yes Medical Necessity: Significant Comorbidiites Make Outpatient Treatment Too Risky , Risk of Complication if Not Cared For in Hospital - Plan Summary Plan Summary: 1. Urinary tract infection with negative culture. Patient has been on ceftriaxone Day 4, will continue for now and transition to oral antibiotics on discharge. 2. Elevated troponin with no evidence of acute coronary syndrome. Continue with aspirin and beta-blockers no further intervention needed. 3. Anemia likely secondary to chronic disease 4. Stable coronary artery disease 5. Hypertension controlled 6. Type 2 diabetes mellitus on sliding scale insulin 7. Systemic lupus erythematosus on chronic daily prednisone 8. Continuous opiate dependence for chronic pain. She is on fentanyl patch as well as oxycodone for breakthrough symptoms 9. Ambulatory dysfunction patient lives alone and family apparently interested in rehab discharge. Will discuss further plans with family. She really wants to go home
[2018-03-21] MEDS ORDERED: OXYCODONE-ACETAMINOPHEN 5-325 MG TABLET PO PRN (15:56)
[2018-03-21] MEDS ORDERED: OXYCODONE HCL IR 5 MG TABLET PO PRN (15:57)
--- NOTE | 2018-03-21 16:20 | PDOC DISCHARGE SUMMARY ---
General - Admit/Disc Date/PCP Admission Date/Primary Care Provider: 03/17/18 16:14 SHAYY FLORES MD Discharge Date: 03/21/18 - Discharge Diagnosis (1) Hypertension Is this a current diagnosis for this admission?: Yes (2) Opiate dependence, continuous Is this a current diagnosis for this admission?: Yes (3) SLE (systemic lupus erythematosus) Is this a current diagnosis for this admission?: Yes (4) UTI (urinary tract infection) Is this a current diagnosis for this admission?: Yes (5) Diabetes Is this a current diagnosis for this admission?: Yes - Additional Information Resuscitation Status: Full Code Discharge Diet: Cardiac Discharge Activity: Activity As Tolerated Prescriptions: Cephalexin Monohydrate [Keflex 500 mg Capsule] 500 mg PO QID #20 capsule Home Medications: Alprazolam [Xanax] 0.25 mg PO BID@1200,2200 03/17/18 Amlodipine Besylate [Norvasc 5 mg Tablet] 5 mg PO NOON 03/17/18 Atenolol [Tenormin 50 mg Tablet] 50 mg PO QHS 03/17/18 Calcium Carbonate [Calcium] 600 mg PO NOON 03/17/18 Cholecalciferol (Vitamin D3) [Vitamin D3] 5,000 unit PO NOON 03/17/18 Fenofibrate 160 mg PO DAILY 03/17/18 Fentanyl [Duragesic 12 Mcg/Hr Transdermal Patch] 1 patch TOP Q3D 03/17/18 Ferrous Sulfate [Feosol 325 mg Tablet] 325 mg PO TID@1200,1800,2200 03/17/18 Furosemide [Lasix 20 mg Tablet] 5 mg PO DAILY 03/17/18 Gabapentin [Neurontin 300 mg Capsule] 600 mg PO Q12 03/17/18 Glimepiride [Amaryl 4 mg Tablet] 4 mg PO BID 03/17/18 Hydralazine HCl [Apresoline 25 mg Tablet] 25 mg PO Q8 03/17/18 Hydroxyzine Pamoate [Vistaril 25 mg Capsule] 25 mg PO QHS 03/17/18 Isosorbide Mononitrate [Isosorbide Mononitrate ER] 30 mg PO NOON 03/17/18 Levothyroxine Sodium [Synthroid 0.025 mg Tablet] 0.025 mg PO NOON 03/17/18 Metoprolol Tartrate [Lopressor 25 mg Tablet] 12.5 mg PO Q12 03/17/18 Omeprazole 20 mg PO DAILY 03/17/18 Oxycodone HCl/Acetaminophen [Oxycodon-Acetaminophen 7.5-325] 1 tab PO Q12HP PRN 03/17/18 Paroxetine HCl [Paxil 20 mg Tablet] 20 mg PO DAILY 03/17/18 Prednisone 7.5 mg PO QHS 03/17/18 Promethazine HCl [Phenergan 25 mg Tablet] 25 mg PO DAILYP PRN 03/17/18 Zolpidem Tartrate [Ambien 5 mg Tablet] 5 mg PO QHS 03/17/18 Cephalexin Monohydrate [Keflex 500 mg Capsule] 500 mg PO QID #20 capsule Nystatin [Mycostatin Topical Powder 15 gm] 1 applic TP BID bottle 03/21/18 History of Present Illness History of Present Illness: KAILA ANDRADE is a 87 year old female admitted with weakness and difficulty ambulating and was found to have urinary tract infection. Hospital Course Hospital Course: Patient was started on intravenous ceftriaxone which she received for 5 days. Subsequent urine culture and blood cultures were all negative. Patient has made a clinical improvement and has remained afebrile. It appears she is back to her baseline mental status. Although there was mention of family requesting patient to be discharged to rehab facility it appears they decided today that this was not necessary and patient could go home. She already has been seen by physical therapy and she is able to ambulate with the aid of a walker. With hemodynamic stability and no further interventions been planned she is been discharged home Physical Exam Vital Signs: Temp Pulse Resp BP Pulse Ox 98.3 F 84 14 176/62 H 99 03/21/18 11:37 03/21/18 14:00 03/21/18 11:37 03/21/18 11:37 03/21/18 11:37 Intake & Output 03/20/18 03/21/18 03/22/18 06:59 06:59 06:59 Intake Total 1430 1350 1000 Output Total 300 Balance 1430 1050 1000 Weight 63.5 kg 64.3 kg General appearance: PRESENT: no acute distress, well-developed Head exam: PRESENT: atraumatic, normocephalic Eye exam: PRESENT: conjunctiva pink, EOMI, PERRLA. ABSENT: scleral icterus Ear exam: PRESENT: normal external ear exam Mouth exam: PRESENT: moist Neck exam: ABSENT: carotid bruit, JVD, lymphadenopathy, thyromegaly Respiratory exam: PRESENT: clear to auscultation lina. ABSENT: rales, rhonchi, wheezes Cardiovascular exam: PRESENT: RRR, +S1, +S2. ABSENT: diastolic murmur, rubs, systolic murmur Pulses: PRESENT: normal dorsalis pedis pul GI/Abdominal exam: PRESENT: normal bowel sounds, soft. ABSENT: distended, guarding, mass, organolmegaly, rebound, tenderness Rectal exam: PRESENT: deferred Extremities exam: PRESENT: full ROM. ABSENT: calf tenderness, clubbing, pedal edema Neurological exam: PRESENT: alert, awake, oriented to person, oriented to place , oriented to time, oriented to situation, CN II-XII grossly intact. ABSENT: motor sensory deficit Psychiatric exam: PRESENT: appropriate affect. ABSENT: homicidal ideation, suicidal ideation Skin exam: PRESENT: dry, intact, warm. ABSENT: cyanosis, rash Results Laboratory Results: 03/20/18 04:47 03/20/18 04:47 03/17/18 03/17/18 03/18/18 20:33 20:33 04:35 Creatine Kinase 119 99 CK-MB (CK-2) 2.53 Troponin I 0.032 03/18/18 03/18/18 04:35 14:30 Creatine Kinase CK-MB (CK-2) 2.03 Troponin I 0.032 0.027 Impressions: Chest X-Ray 03/17/18 11:31 IMPRESSION: No acute disease. Abdomen/Pelvis CT 03/17/18 12:59 IMPRESSION: Multiple tiny gallstones in the gallbladder and gallbladder neck. Gallbladder mildly distended without gross wall thickening. No CT evidence of acute pancreatitis. Other findings as above Qualifiers - * PATIENT BEING DISCHARGED WITH ANY OF THE FOLLOWING DIAGNOSIS: No
[2018-03-21 16:48] VITALS: BP 169/67
[2018-03-21] MEDS ORDERED: NYSTATIN TOPICAL POWDER 15 GM TP SCH (18:00)
[2018-03-21] MEDS ORDERED: HYDRALAZINE HCL 25 MG TABLET PO SCH (22:00)
[2018-03-21] MEDS ORDERED: GABAPENTIN 300 MG CAPSULE PO SCH (22:00)
[2018-03-24 17:59] LABS: VITAMIN D 1,25 DIHYDROXY 59.3 pg/mL (19.9-79.3)
[2018-03-26 12:16] LABS: PTH RELATED PEPTIDE <2.0 pmol/L (.)
== END 2018-03-21 17:38 | disposition home health service (06) | DRG 690 ==
LOC: ER 11:00 → EH 16:14 → UNDOADMIN 16:14 → 4N 20:55
PROVIDERS: ADMIT Internal Medicine; ATTEND Internal Medicine
DX: N39.0 Urinary tract infection, site not specified (principal); F11.20 Opioid dependence, uncomplicated; M32.9 Systemic lupus erythematosus, unspecified; E11.9 Type 2 diabetes mellitus without complications; K80.80 Other cholelithiasis without obstruction; I25.10 Atherosclerotic heart disease of native coronary artery without angina pectoris; K21.9 Gastro-esophageal reflux disease without esophagitis; I11.0 Hypertensive heart disease with heart failure; I50.9 Heart failure, unspecified; M19.90 Unspecified osteoarthritis, unspecified site; F32.9 Major depressive disorder, single episode, unspecified; Z60.2 Problems related to living alone; Z96.643 Presence of artificial hip joint, bilateral; D63.8 Anemia in other chronic diseases classified elsewhere; G89.29 Other chronic pain; E83.51 Hypocalcemia; I25.2 Old myocardial infarction; Z79.899 Other long term (current) drug therapy; Z95.1 Presence of aortocoronary bypass graft; Z88.8 Allergy status to other drugs, medicaments and biological substances; Z79.52 Long term (current) use of systemic steroids
CPT/HCPCS: 36415; 51701; 71046; 74177; 80048; 80053; 80076; 81001; 82330; 82397; 82550; 82553; 82607; 82652; 82728; 82746; 82962; 83540; 83550; 83690; 83735; 84443; 84484; 85025; 85045; 87040; 87086; 87210; 93005; 93010; 96365; 99285; G8978-GP; G8979-GP; J0360; J0696; J1650; J1815; J3490; J7030; J7512; S0119

== ENCOUNTER 2018-05-10 12:31 | Inpatient (IN) | payer MEDICARE, MEDICAID ==
--- NOTE | 2018-05-10 13:06 | ER Document Report ---
ED General - General Chief Complaint: Leg Pain Stated Complaint: LEFT LEG PAIN Time Seen by Provider: 05/10/18 12:47 TRAVEL OUTSIDE OF THE [place] IN LAST 30 DAYS: No - HPI Notes: Patient is an 87-year-old female with a history of type 2 diabetes, hypertension , chronic pain, osteoporosis/osteopenia who presents to the ED by EMS complaining of left leg pain status post fall 2 days ago. Patient was given oxycodone 15 minutes prior to arrival. Patient's nurse aide called EMS. Patient states that she was in her bathroom at the time of the injury, but is not able to elaborate at this time. I believe that the patient may be drowsy from the oxycodone that was given to her earlier as she is drifting off and I do not have any other significant medical history nor a contact to discuss her baseline with at this time. Throughout the interview, she was able to answer some yes or no questions for me as follows: Denies any headache, fever, head injury, neck pain, chest pain, palpitations, syncope, cough, shortness of breath , abdominal pain, nausea/vomiting. - Related Data Allergies/Adverse Reactions: simvastatin [From Zocor] Allergy (Verified 10/15/15 16:16) Generalized Itching Past Medical History - General Cannot obtain history due to: Other - see hpi - Social History Smoking Status: Unknown if Ever Smoked Family History: Reviewed & Not Pertinent - Past Medical History Cardiac Medical History: Reports: Hx Congestive Heart Failure, Hx Heart Attack - x2, Hx Hypertension Pulmonary Medical History: Reports: Hx Pneumonia Endocrine Medical History: Reports: Hx Diabetes Mellitus Type 2 Renal/ Medical History: Denies: Hx Peritoneal Dialysis GI Medical History: Reports: Hx Gastroesophageal Reflux Disease Musculoskeletal Medical History: Reports Hx Arthritis Psychiatric Medical History: Reports: Hx Depression Past Surgical History: Reports: Hx Cardiac Surgery - bypass, Hx Coronary Artery Bypass Graft, Hx Orthopedic Surgery - bilateral hip replacement, WISHES TO F/U W / HER ORTHO IN [place] - Immunizations Hx Diphtheria, Pertussis, Tetanus Vaccination: No Hx Pneumococcal Vaccination: 09/03/15 Review of Systems - Review of Systems -: Yes ROS unobtainable due to patient's medical condition - aside from HPI Physical Exam - Vital signs Vitals: Temp Resp BP Pulse Ox 97.6 F 17 115/54 L 98 05/10/18 12:38 05/10/18 12:38 05/10/18 12:38 05/10/18 12:38 - Notes Notes: PHYSICAL EXAMINATION: accompanied by female nurse GENERAL: Pt appears drowsy and weak HEAD: Atraumatic, normocephalic. Non-tender. No reyes sign EYES: Pupils equal round and reactive to light, extraocular movements intact, sclera anicteric, conjunctiva are normal. No raccoon eyes/entrapment ENT: EAC clear b/l. TM's intact b/l without erythema, fluid, or perforation. Nares patent and without discharge. oropharynx clear without exudates. No tonsilar hypertrophy or erythema. Moist mucous membranes. No sinus tenderness. No hemotympanum/CSF discharge. NECK: Normal range of motion, supple without lymphadenopathy. No rigidity. No obvious midline tenderness. Chest: No flail chest. equal rise/fall. Non-tender LUNGS: Breath sounds clear to auscultation bilaterally and equal. No wheezes rales or rhonchi. HEART: Regular rate and rhythm without murmurs, rubs, gallops. ABDOMEN: Soft, nontender, nondistended abdomen. No guarding, no rebound. No masses appreciated. Normal bowel sounds present. No CVA tenderness bilaterally. Musculoskeletal: Rt LE: FROM to passive/active. Strength 5+/5. No deficits noted. No bony tenderness of extremities. Lt LE: LROM at the hip due to discomfort. Strength 4+/5 due to pain. + tenderness to palp of the left hip. No obvious ecchymosis or deformity. Back: FROM to passive/active. Strength 5+/5. No vertebral point tenderness, stepoffs, or deformities. No other bony tenderness or ecchymosis. Extremities: No cyanosis, clubbing, or edema b/l. Peripheral pulses 2+. Capillary refill less than 2 seconds. NEUROLOGICAL: GCS 15. Cranial nerves grossly intact. Mumbling, but understandable speech. Normal sensory, motor exams. Reflexes 2+ b/l. PSYCH: seems drowsy, flat, possible mild alteration SKIN: Warm, Dry, normal turgor, no rashes or lesions noted. Course - Re-evaluation Re-evalutation: 05/10/18 13:[address] Huynh. Because we do not know the extent of her injury or how she fell (reported 2 days ago), we will proceed with CT of the head/cerv spine and obtain and XR of the left hip. Blood work will also be obtained as well as a urine. 05/10/18 14:42 There appears to be an acute fx involving the lesser trochanter left hip. Other imaging unremarkable. I spoke with Dr. Adorno who would like a CT scan to further evaluate and most likely will be discharge and f/u tomorrow with Dr. García weight-bearing as tolerated. 05/10/18 15:23 Pt is now more awake and communicating easier. Pt states that she did fall in the bathroom and has not been able to walk or weight-bear at home over the last 1.5 days. Pt also c/o left hand pain. Eval of this area does show ecchymosis and swelling to the left hand/wrist. We will obtain an XR. 05/10/18 16:14 Patient has proximal phalangeal fractures to #4 and #5 digits of the left hand. I did speak with Dr. Adorno to let him know that patient will be admitted for medical admission with orthopedic consult in the morning. Dr. Kuo accepted pt for admit to medical floor. - Vital Signs Vital signs: Temp Pulse Resp BP Pulse Ox 97.6 F 17 115/54 L 98 05/10/18 12:38 05/10/18 12:38 05/10/18 12:38 05/10/18 12:38 - Laboratory Result Diagrams: 05/10/18 13:07 05/10/18 13:07 Laboratory results interpreted by me: 05/10/18 05/10/18 05/10/18 13:07 13:07 13:07 WBC 15.0 H Absolute Neutrophils 11.3 H APTT 37.6 H Sodium 133.4 L Chloride 94 L Carbon Dioxide 32 H BUN 43 H Est GFR ( Amer) 50 L Est GFR (Non-Af Amer) 41 L Glucose 273 H Calcium 10.3 H Total Bilirubin 1.4 H Direct Bilirubin 0.9 H Urine Protein Urine Glucose (UA) 05/10/18 14:06 WBC Absolute Neutrophils APTT Sodium Chloride Carbon Dioxide BUN Est GFR ( Amer) Est GFR (Non-Af Amer) Glucose Calcium Total Bilirubin Direct Bilirubin Urine Protein 30 H Urine Glucose (UA) 1000 H Discharge - Discharge Clinical Impression: Fracture of lesser trochanter of femur Qualifiers: Encounter type: initial encounter Fracture type: closed Fracture alignment: nondisplaced Laterality: left Qualified Code(s): S72.125A - Nondisplaced fracture of lesser trochanter of left femur, initial encounter for closed fracture Finger fracture, left Qualifiers: Encounter type: initial encounter Finger: ring finger Fracture type: closed Phalanx: proximal Fracture alignment: displaced Qualified Code(s): S62.615A - Displaced fracture of proximal phalanx of left ring finger, initial encounter for closed fracture Fracture of finger Qualifiers: Encounter type: initial encounter Finger: little finger Fracture type: closed Phalanx: proximal Fracture alignment: displaced Laterality: left Qualified Code( s): S62.617A - Displaced fracture of proximal phalanx of left little finger, initial encounter for closed fracture Condition: Stable Disposition: ADMITTED INPATIENT Admitting Provider: Hospitalist - Dr. Kuo Unit Admitted: Medical Floor Referrals: SHAYY FLORES MD [Primary Care Provider] - Follow up as needed
[2018-05-10 13:23] LABS: ABSOLUTE BASOPHILS # (AUTO) 0.1 10^3/uL (0.0-0.2); ABSOLUTE EOSINOPHILS # (AUTO) 0.1 10^3/uL (0.0-0.6); ABSOLUTE LYMPHOCYTES (AUTO) 2.1 10^3/uL (0.5-4.7); ABSOLUTE MONOCYTES (AUTO) 1.3 10^3/uL (0.1-1.4); ABSOLUTE NEUT (AUTO) 11.3 10^3/uL (1.7-8.2); BASOPHILS % (AUTO) 0.8 % (0-2); EOSINOPHILS % (AUTO) 0.7 % (0-6); HEMATOCRIT 36.4 % (36.0-47.0); HEMOGLOBIN 12.1 g/dL (12.0-15.5); LYMPHOCYTES % (AUTO) 14.1 % (13-45); MEAN CORPUSCULAR HGB CONC 33.2 g/dL (32.0-36.0); MEAN CORPUSCULAR VOLUME 93 fl (80-97); MONOCYTES % (AUTO) 8.9 % (3-13); PLATELET COUNT 294 10^3/uL (150-450); RED CELL DISTRIBUTION WIDTH 13.7 % (11.5-14.0); SEGMENTED NEUTROPHILS % (AUTO) 75.5 % (42-78); TOTAL CELLS COUNTED % (AUTO) 100 %
[2018-05-10 13:33] LABS: INTERNATIONAL RATION (INR) 1.12
[2018-05-10 13:34] LABS: PARTIAL THROMBOPLASTIN TIME 37.6 SEC (23.5-35.8)
--- NOTE | 2018-05-10 13:39 | RADIOLOGY REPORT (SQ) ---
EXAM DESCRIPTION: CT HEAD WITHOUT COMPLETED DATE/TIME: 05/10/2018 1:28 pm REASON FOR STUDY: fall COMPARISON: 05/23/2012 TECHNIQUE: Axial images acquired through the brain without intravenous contrast. Images reviewed wi th bone, brain and subdural windows. Additional sagittal and coronal reconstructions were generated. Images stored on PACS. All CT scanners at this facility use dose modulation, iterative reconstruction, and/or weight based d osing when appropriate to reduce radiation dose to as low as reasonably achievable (ALARA). [facility]: Dose Right [facility]: CareDose [facility]: Dose Right [facility]: Teradose 4D [facility]: [employer] RADIATION DOSE: CT Rad equipment meets quality standard of care and radiation dose reduction techniq ues were employed. CTDIvol: 53.2 mGy. DLP: 964 mGy-cm. mGy. LIMITATIONS: None. FINDINGS: VENTRICLES: Normal size and contour. 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 Few scattered areas of low density in the white matter most likely chronic small vessel ischemic changes. CEREBELLUM: No masses. No hemorrhage. No alteration of density. No evidence for acute infarction. EXTRAAXIAL SPACES: No fluid collections. No masses. ORBITS AND GLOBE: No intra- or extraconal masses. Normal contour of globe without masses. CALVARIUM: No fracture. PARANASAL SINUSES: No fluid or mucosal thickening. SOFT TISSUES: No mass or hematoma. OTHER: No other significant finding. IMPRESSION: CHRONIC MICROVASCULAR ISCHEMIA. NO ACUTE IMAGING FINDINGS IN THE BRAIN. EVIDENCE OF ACUTE STROKE: NO. COMMENT: Quality ID # [id number]: Final reports with documentation of one or more dose reduction techniques (e.g., Automated exposure control, adjustment of the mA and/or kV according to patient size, use of iterative reconstruction technique) TECHNICAL DOCUMENTATION: JOB ID: [id number] [employer]- All Rights Reserved Reading location - IP/workstation name: [email or web address]
--- NOTE | 2018-05-10 13:42 | RADIOLOGY REPORT (SQ) ---
EXAM DESCRIPTION: CT CERVICAL SPINE WITHOUT COMPLETED DATE/TIME: 05/10/2018 1:28 pm REASON FOR STUDY: fall COMPARISON: None. TECHNIQUE: Axial images acquired through the cervical spine without intravenous contrast. Images re viewed with lung, soft tissue and bone windows. Reconstructed coronal and sagittal MPR images review ed. Images stored on PACS. All CT scanners at this facility use dose modulation, iterative reconstruction, and/or weight based d osing when appropriate to reduce radiation dose to as low as reasonably achievable (ALARA). [facility]: Dose Right [facility]: CareDose [facility]: Dose Right [facility]: Teradose 4D [facility]: Smart [employer] RADIATION DOSE: CT Rad equipment meets quality standard of care and radiation dose reduction techniq ues were employed. CTDIvol: 19.5 mGy. DLP: 403 mGy-cm. mGy. LIMITATIONS: None. FINDINGS: ALIGNMENT: Anatomic. MINERALIZATION: Normal. VERTEBRAL BODIES: No fractures or dislocation. DISCS: No significant disc disease. FACETS, LATERAL MASSES, POSTERIOR ELEMENTS: No fractures. No dislocation. No acute findings. HARDWARE: None in the spine. VISUALIZED RIBS: No fractures. LUNG APICES AND SOFT TISSUES: Apical pleural/ parenchymal scarring. OTHER: No other significant finding. IMPRESSION: No acute abnormality in the cervical spine. Chronic pleural/parenchymal scarring. TECHNICAL DOCUMENTATION: JOB ID: [id number] Quality ID # [id number]: Final reports with documentation of one or more dose reduction techniques (e.g., Au tomated exposure control, adjustment of the mA and/or kV according to patient size, use of iterative reconstruction technique) 2010 [employer]- All Rights Reserved Reading location - IP/workstation name: [email or web address]
[2018-05-10 13:47] LABS: ALANINE AMINOTRANSFERASE 18 U/L (9-52); ALBUMIN 3.7 g/dL (3.5-5.0); ALKALINE PHOSPHATASE 38 U/L (38-126); ANION GAP 7 (5-19); ASPARTATE AMINO TRANSFERASE 36 U/L (14-36); BILIRUBIN,DIRECT 0.9 mg/dL (0.0-0.4); BILIRUBIN,TOTAL 1.4 mg/dL (0.2-1.3); BLOOD UREA NITROGEN 43 mg/dL (7-20); CALCIUM 10.3 mg/dL (8.4-10.2); CARBON DIOXIDE 32 mmol/L (22-30); CHLORIDE 94 mmol/L (98-107); GLUCOSE 273 mg/dL (75-110); POTASSIUM 4.4 mmol/L (3.6-5.0); SODIUM 133.4 mmol/L (137-145); TOTAL PROTEIN 7.7 g/dL (6.3-8.2)
--- NOTE | 2018-05-10 14:02 | RADIOLOGY REPORT (SQ) ---
EXAM DESCRIPTION: HIP LEFT AP/LATERAL COMPLETED DATE/TIME: 05/10/2018 1:36 pm REASON FOR STUDY: left hip pain s/p fall COMPARISON: 10/31/2014 NUMBER OF VIEWS: Two views. TECHNIQUE: AP pelvis and additional frog-leg view of the left hip. LIMITATIONS: None. FINDINGS: MINERALIZATION: Normal. LEFT HIP: Left hip arthroplasty. The femoral head does not appear to be well seated in the acetabula r component. There appears to be an acute fracture involving the lesser trochanter. RIGHT HIP: Right hip arthroplasty in good position. PUBIS AND ISCHIUM: No fracture. PELVIS: No fracture. SACRUM: No fracture or dislocation. No worrisome bone lesions. LOWER LUMBAR SPINE: No fracture or dislocation. No worrisome bone lesions. No significant disc disea se. SOFT TISSUES: No findings. OTHER: No other significant finding. IMPRESSION: Fracture involving the lesser trochanter. Cannot exclude dislocation/subluxation of the hip joint. TECHNICAL DOCUMENTATION: JOB ID: [id number] [employer]- All Rights Reserved Reading location - IP/workstation name: [email or web address]
[2018-05-10 15:25] LABS: APPEARANCE,URINE CLEAR; BILIRUBIN,URINE NEGATIVE (NEGATIVE); COLOR,URINE YELLOW; GLUCOSE, URINE 1000 mg/dL (NEGATIVE); KETONES,URINE NEGATIVE (NEGATIVE); LEUKOCYTE ESTERASE,URINE NEGATIVE (NEGATIVE); NITRITE,URINE NEGATIVE (NEGATIVE); PROTEIN,URINE 30 mg/dL (NEGATIVE); URINE SPECIFIC GRAVITY 1.017; UROBILINOGEN,URINE NEGATIVE mg/dL (<2.0)
[2018-05-10 15:26] LABS: ADD MANUAL MICROSCOPIC YES; BACTERIA,URINE TRACE /HPF; HYALINE CASTS, URINE 0-1 /LPF; RBC,URINE RARE /HPF
--- NOTE | 2018-05-10 15:32 | RADIOLOGY REPORT (SQ) ---
EXAM DESCRIPTION: CT PELVIS WITHOUT COMPLETED DATE/TIME: 05/10/2018 3:11 pm REASON FOR STUDY: per Adorno, further eval of acetabular./fx COMPARISON: Left hip radiographs 05/10/2018 TECHNIQUE: CT scan of the pelvis performed without intravenous or oral contrast. Images reviewed wi th soft tissue and bone windows. Reconstructed coronal and sagittal MPR images reviewed. All images stored on PACS. All CT scanners at this facility use dose modulation, iterative reconstruction, and/or weight based d osing when appropriate to reduce radiation dose to as low as reasonably achievable (ALARA). [facility]: Dose Right [facility]: CareDose [facility]: Dose Right [facility]: Teradose 4D [facility]: Smart [employer] RADIATION DOSE: CT Rad equipment meets quality standard of care and radiation dose reduction techniq ues were employed. CTDIvol: 14.6 mGy. DLP: 526 mGy-cm. mGy. LIMITATIONS: Artifact from bilateral hip arthroplasties. FINDINGS: PELVIC BONES: No acute fracture. No worrisome bone lesions. VISUALIZED SPINE: No acute findings. HIP(S): Right hip arthroplasty in good position. Left hip arthroplasty that appears very slightly ec centrically positioned. On image 34 series 301 the joint space inferiorly appears smaller than that superiorly. PELVIC SOFT TISSUES: No significant findings. EXTRAPELVIC SOFT TISSUES: No significant findings. OTHER: No other significant finding. IMPRESSION: The femoral component of the left hip appears slightly eccentrically positioned with reg erika to the acetabular component. Is there history that may suggest dislocation/relocation such that there could be some soft tissue trapped in the joint? Is the joint freely movable? The findings are subtle. TECHNICAL DOCUMENTATION: JOB ID: [id number] Quality ID # [id number]: Final reports with documentation of one or more dose reduction techniques (e.g., Au tomated exposure control, adjustment of the mA and/or kV according to patient size, use of iterative reconstruction technique) 2010 [employer]- All Rights Reserved Reading location - IP/workstation name: [email or web address]
--- NOTE | 2018-05-10 16:00 | RADIOLOGY REPORT (SQ) ---
EXAM DESCRIPTION: HAND LEFT 3 VIEWS COMPLETED DATE/TIME: 05/10/2018 3:50 pm REASON FOR STUDY: ecchymosis, swelling COMPARISON: None. EXAM PARAMETERS: NUMBER OF VIEWS: Three views. TECHNIQUE: AP, lateral and oblique radiographic images acquired of the left hand. LIMITATIONS: None. FINDINGS: MINERALIZATION: Severely osteoporotic BONES: Acute transverse fractures, left proximal metaphysis 4th and 5th proximal phalanges with sligh t dorsal angulation. Old healed distal left radius fracture JOINTS: No effusions. SOFT TISSUES: 4th and 5th metacarpal region soft tissue swelling. No foreign body. OTHER: No other significant finding. IMPRESSION: Acute transverse fractures left proximal metaphysis 4th and 5th phalanges, with slight d orsal angulation TECHNICAL DOCUMENTATION: JOB ID: [id number] [employer]- All Rights Reserved Reading location - IP/workstation name: [email or web address]
--- NOTE | 2018-05-10 16:01 | RADIOLOGY REPORT (SQ) ---
EXAM DESCRIPTION: WRIST LEFT 3 VIEWS COMPLETED DATE/TIME: 05/10/2018 3:50 pm REASON FOR STUDY: ecchymosis, swelling COMPARISON: Left wrist films 2009 NUMBER OF VIEWS: Three views. TECHNIQUE: AP, lateral, and oblique radiographic images acquired of the left wrist. LIMITATIONS: None. FINDINGS: MINERALIZATION: Superiorly osteoporotic BONES: No acute fracture. Old healed distal left radius metaphysis fracture with bony sclerosis. SOFT TISSUES: No soft tissue swelling. No foreign body. OTHER: No other significant finding. IMPRESSION: No acute left wrist fracture. Old healed left distal radius metaphysis fracture TECHNICAL DOCUMENTATION: JOB ID: [id number] [employer]- All Rights Reserved Reading location - IP/workstation name: [email or web address]
[2018-05-10] MEDS ORDERED: ONDANSETRON 4 MG TAB.RAPDIS PO PRN (17:05)
[2018-05-10] MEDS ORDERED: (PENDING PHARMACY ID) (Oxycodone Hcl/Acetaminophen [Percocet 10-325 Mg Tablet] 1 TAB) PO PRN (17:11)
[2018-05-10] MEDS ORDERED: DEXTROSE 50%-WATER 25 GM/50 ML DISP.SYRIN IV PRN ×2 (17:13)
[2018-05-10] MEDS ORDERED: DEXTROSE 40% GEL 15 GM TUBE PO PRN ×2 (17:13)
[2018-05-10] MEDS ORDERED: GLUCAGON,HUMAN RECOMB 1 MG INJ IM PRN (17:13)
--- NOTE | 2018-05-10 17:26 | PDOC H&P ---
History of Present Illness Admission Date/PCP: SHAYY FLORES MD History of Present Illness: KAILA ANDRADE is a 87 year old female extensive past medical history such as type 2 diabetes, hypertension, chronic pain, osteoporosis/osteopenia, CAD status post stents and CABG, SLE, 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 She was brought to ED by EMS complaining of left leg pain status post fall 2 days ago. Patient's home medications include oxycodone, benzos, Ambien which may have contributed to the recent fall. Patient's nurse aide called EMS. Patient states that she was in her bathroom at the time of the injury, but is not able to elaborate at this time. Fall happened on Thursday night however EMS was only called today after a visit by home health. Oldest son who is in the room stated that they were not aware of the fall and they were notified today by home health. Patient lives alone but has home health and home physical therapy. Patient seems very quiet however cooperates with physical examination and history but does not provide history in detail. She is states that she has constant pain in the left hip which is worse with movement. Denies any headache, fever, head injury, neck pain, chest pain, palpitations, syncope, cough, shortness of breath, abdominal pain, nausea/vomiting. The head and neck did not show any acute abnormalities however x-ray of the left hip showed fracture in the lesser trochanter. Hospitalist was consulted for admission. Past Medical History Cardiac Medical History: Reports: Congestive Heart Failure, Myocardial Infarction - x2, Hypertension Pulmonary Medical History: Reports: Pneumonia Endocrine Medical History: Reports: Diabetes Mellitus Type 2 GI Medical History: Reports: Gastroesophageal Reflux Disease Musculoskeltal Medical History: Reports: Arthritis Psychiatric Medical History: Reports: Depression Hematology: Denies: Anemia Past Surgical History Past Surgical History: Reports: Coronary Artery Bypass Graft, Orthopedic Surgery - bilateral hip replacement, WISHES TO F/U W/ HER ORTHO IN [place] Social History Smoking Status: Unknown if Ever Smoked Frequency of Alcohol Use: None Hx Recreational Drug Use: No Drugs: None Hx Prescription Drug Abuse: No Family History Family History: Reviewed & Not Pertinent Parental Family History Reviewed: Yes Children Family History Reviewed: Yes Sibling(s) Family History Reviewed.: Yes Medication/Allergy Home Medications: Amlodipine Besylate [Norvasc 5 mg Tablet] 5 mg PO NOON 05/10/18 Atenolol [Tenormin 50 mg Tablet] 50 mg PO Q12 05/10/18 Calcium Citrate/Vitamin D3 [Calcium Citrate-Vit D3 Caplet] 2 tab PO DAILY Cholecalciferol (Vitamin D3) [Vitamin D3 5000 unit Capsule] 5,000 unit PO NOON 05/10/18 Fenofibrate 160 mg PO DAILY 05/10/18 Fentanyl [Duragesic 12 Mcg/Hr Transdermal Patch] 1 each TD Q3D 05/10/18 Ferrous Sulfate [Feosol 325 mg Tablet] 325 mg PO TID@1200,1800,2200 05/10/18 Furosemide [Lasix 20 mg Tablet] 20 mg PO QAM 05/10/18 Gabapentin [Neurontin 300 mg Capsule] 600 mg PO Q12 05/10/18 Glimepiride [Amaryl 4 mg Tablet] 4 mg PO BID 05/10/18 Hydralazine HCl [Apresoline 25 mg Tablet] 25 mg PO Q8 05/10/18 Insulin Glargine,Hum.rec.anlog [Lantus Solostar] 40 unit SQ QHS 05/10/18 Insulin Lispro [Humalog Kwikpen] 12 unit SQ AC 05/10/18 Isosorbide Mononitrate [Isosorbide Mononitrate ER] 30 mg PO NOON 05/10/18 Levothyroxine Sodium [Synthroid 0.025 mg Tablet] 0.025 mg PO NOON 05/10/18 Metoprolol Tartrate [Lopressor 25 mg Tablet] 12.5 mg PO Q12 05/10/18 Omeprazole 20 mg PO DAILY 05/10/18 Oxycodone HCl/Acetaminophen [Percocet 10-325 Mg Tablet] 1 tab PO TIDP PRN Paroxetine HCl [Paxil 20 mg Tablet] 20 mg PO QHS 05/10/18 Prednisone 7.5 mg PO QHS 05/10/18 Zolpidem Tartrate [Ambien 5 mg Tablet] 5 mg PO QHS 05/10/18 Allergies/Adverse Reactions: simvastatin [From Zocor] Allergy (Verified 10/15/15 16:16) Generalized Itching Review of Systems Review of Systems: Per HPI Physical Exam Vital Signs: Temp Pulse Resp BP Pulse Ox 97.6 F 17 115/54 L 98 10/08/18 12:38 05/10/18 12:38 05/10/18 12:38 05/10/18 12:38 Intake & Output 05/09/18 05/10/18 05/11/18 06:59 06:59 06:59 Weight 63.503 kg General appearance: PRESENT: no acute distress, thin Head exam: PRESENT: atraumatic, normocephalic Neck exam: ABSENT: carotid bruit, JVD, lymphadenopathy, thyromegaly Respiratory exam: PRESENT: clear to auscultation lina. ABSENT: rales, rhonchi, wheezes Cardiovascular exam: PRESENT: RRR. ABSENT: diastolic murmur, rubs, systolic murmur Pulses: PRESENT: normal dorsalis pedis pul Extremities exam: PRESENT: other - Left lower extremity is extended. Patient able to bend her knee but he states this is causing pain. There is severe pain upon external rotation of the hip joint.. ABSENT: calf tenderness, clubbing, pedal edema Results Laboratory Results: 05/10/18 13:07 05/10/18 13:07 05/10/18 05/10/18 05/10/18 13:07 13:07 14:06 WBC 15.0 H RBC 3.90 Hgb 12.1 Hct 36.4 MCV 93 MCH 31.0 MCHC 33.2 RDW 13.7 Plt Count 294 Seg Neutrophils % 75.5 Lymphocytes % 14.1 Monocytes % 8.9 Eosinophils % 0.7 Basophils % 0.8 Absolute Neutrophils 11.3 H Absolute Lymphocytes 2.1 Absolute Monocytes 1.3 Absolute Eosinophils 0.1 Absolute Basophils 0.1 Sodium 133.4 L Potassium 4.4 Chloride 94 L Carbon Dioxide 32 H Anion Gap 7 BUN 43 H Creatinine 1.24 Est GFR ( Amer) 50 L Est GFR (Non-Af Amer) 41 L Glucose 273 H Calcium 10.3 H Total Bilirubin 1.4 H AST 36 ALT 18 Alkaline Phosphatase 38 Total Protein 7.7 Albumin 3.7 Urine Color YELLOW Urine Appearance CLEAR Urine pH 6.0 Ur Specific [place] 1.017 Urine Protein 30 H Urine Glucose (UA) 1000 H Urine Ketones NEGATIVE Urine Blood NEGATIVE Urine Nitrite NEGATIVE Ur Leukocyte Esterase NEGATIVE Impressions: Cervical Spine CT 05/10/18 12:59 IMPRESSION: No acute abnormality in the cervical spine. Chronic pleural/ parenchymal scarring. Head CT 05/10/18 12:59 IMPRESSION: CHRONIC MICROVASCULAR ISCHEMIA. NO ACUTE IMAGING FINDINGS IN THE BRAIN. EVIDENCE OF ACUTE STROKE: NO. Hip X-Ray 05/10/18 12:59 IMPRESSION: Fracture involving the lesser trochanter. Cannot exclude dislocation/subluxation of the hip joint. Pelvis CT 05/10/18 14:42 IMPRESSION: The femoral component of the left hip appears slightly eccentrically positioned with regard to the acetabular component. Is there history that may suggest dislocation/relocation such that there could be some soft tissue trapped in the joint? Is the joint freely movable? The findings are subtle. Hand X-Ray 05/10/18 15:23 IMPRESSION: Acute transverse fractures left proximal metaphysis 4th and 5th phalanges, with slight dorsal angulation Wrist X-Ray 05/10/18 15:23 IMPRESSION: No acute left wrist fracture. Old healed left distal radius metaphysis fracture Assessment & Plan - Diagnosis (1) Fracture of lesser trochanter of femur Qualifiers: Encounter type: initial encounter Fracture type: closed Fracture alignment: nondisplaced Laterality: left Qualified Code(s): S72.125A - Nondisplaced fracture of lesser trochanter of left femur, initial encounter for closed fracture Is this a current diagnosis for this admission?: Yes Plan: Pain management. Ortho consulted. Will follow recommendation. (2) Chronic pain Is this a current diagnosis for this admission?: Yes Plan: Restart home meds. Continue fall precautions. Patient's pain management medications need to be reconsulted before discharge to prevent any further falls in the future. (3) Coronary artery disease Qualifiers: Coronary Disease-Associated Artery/Lesion type: kaw artery Associated angina: angina presence unspecified Is this a current diagnosis for this admission?: Yes Plan: History of CABG, stent placement. Upon reviewing patient's home medication she is not on antiplatelets. Continue beta-blockers. Continue fenofibrate. Patient is allergic to statins. Cardiac diet (4) Diabetes Is this a current diagnosis for this admission?: Yes Plan: Restart Lantus at a lower dose. Patient may have surgery tomorrow. Adjust insulin dosage post surgery/intervention. Hold oral hypoglycemics. Continue sliding scale. PCP follow-up. (5) Hypertension Qualifiers: Hypertension type: unspecified Qualified Code(s): I10 - Essential (primary ) hypertension Is this a current diagnosis for this admission?: No Plan: Restart home medication. Monitor vitals. Hold diuretics for possible orthopedic intervention. Adjust medications as needed. (6) Opiate dependence, continuous Is this a current diagnosis for this admission?: Yes Plan: Restart home medications. Continue fall precaution. Patient's pain medication needs to be reconciled to prevent further falls in the future. (7) SLE (systemic lupus erythematosus) Is this a current diagnosis for this admission?: Yes Plan: Restarted steroids low-dose. (8) Hypothyroidism Is this a current diagnosis for this admission?: Yes Plan: Restart home meds.
--- NOTE | 2018-05-10 18:12 | PDOC CONSULTATION ---
Consultation Consult Date: 05/10/18 Consult reason:: Left lesser trochanteric fracture. Left hand fourth and fifth proximal phalanx fracture History of Present Illness Admission Date/PCP: 05/10/18 17:09 SHAYY FLORES MD History of Present Illness: KAILA ANDRADE is a 87 year old female status post mechanical fall 2 days ago. She has a home health nurse come every day except for the weekends and was on the floor apparently for 48 hours per the nursing staff. Patient is alert and responding. Complains of left hip pain. Complains of left hand pain. Denies any other extremity injuries. She does have history of a hip replacements and ORIF of her femur. Denies any loss of consciousness. Denies any numbness or tingling or paresthesias. Denies any swelling other than the left hand and left hip. Describes the pain 5 out of 5. At rest its about 2 out of 5. Past Medical History Cardiac Medical History: Reports: Congestive Heart Failure, Myocardial Infarction - x2, Hypertension Pulmonary Medical History: Reports: Pneumonia Endocrine Medical History: Reports: Diabetes Mellitus Type 2 GI Medical History: Reports: Gastroesophageal Reflux Disease Musculoskeltal Medical History: Reports: Arthritis Psychiatric Medical History: Reports: Depression Hematology: Denies: Anemia Past Surgical History Past Surgical History: Reports: Coronary Artery Bypass Graft, Orthopedic Surgery - bilateral hip replacement, WISHES TO F/U W/ HER ORTHO IN [place] Social History Smoking Status: Unknown if Ever Smoked Frequency of Alcohol Use: None Hx Recreational Drug Use: No Drugs: None Hx Prescription Drug Abuse: No - Advance Directive Resuscitation Status: Full Code Family History Family History: Reviewed & Not Pertinent Parental Family History Reviewed: No Children Family History Reviewed: No Sibling(s) Family History Reviewed.: No Medication/Allergy Home Medications: Amlodipine Besylate [Norvasc 5 mg Tablet] 5 mg PO NOON 05/10/18 Atenolol [Tenormin 50 mg Tablet] 50 mg PO Q12 05/10/18 Calcium Citrate/Vitamin D3 [Calcium Citrate-Vit D3 Caplet] 2 tab PO DAILY Cholecalciferol (Vitamin D3) [Vitamin D3 5000 unit Capsule] 5,000 unit PO NOON 05/10/18 Fenofibrate 160 mg PO DAILY 05/10/18 Fentanyl [Duragesic 12 Mcg/Hr Transdermal Patch] 1 each TD Q3D 05/10/18 Ferrous Sulfate [Feosol 325 mg Tablet] 325 mg PO TID@1200,1800,2200 05/10/18 Furosemide [Lasix 20 mg Tablet] 20 mg PO QAM 05/10/18 Gabapentin [Neurontin 300 mg Capsule] 600 mg PO Q12 05/10/18 Glimepiride [Amaryl 4 mg Tablet] 4 mg PO BID 05/10/18 Hydralazine HCl [Apresoline 25 mg Tablet] 25 mg PO Q8 05/10/18 Insulin Glargine,Hum.rec.anlog [Lantus Solostar] 40 unit SQ QHS 05/10/18 Insulin Lispro [Humalog Kwikpen] 12 unit SQ AC 05/10/18 Isosorbide Mononitrate [Isosorbide Mononitrate ER] 30 mg PO NOON 05/10/18 Levothyroxine Sodium [Synthroid 0.025 mg Tablet] 0.025 mg PO NOON 05/10/18 Metoprolol Tartrate [Lopressor 25 mg Tablet] 12.5 mg PO Q12 05/10/18 Omeprazole 20 mg PO DAILY 05/10/18 Oxycodone HCl/Acetaminophen [Percocet 10-325 Mg Tablet] 1 tab PO TIDP PRN Paroxetine HCl [Paxil 20 mg Tablet] 20 mg PO QHS 05/10/18 Prednisone 7.5 mg PO QHS 05/10/18 Zolpidem Tartrate [Ambien 5 mg Tablet] 5 mg PO QHS 05/10/18 Allergies/Adverse Reactions: simvastatin [From Zocor] Allergy (Verified 10/15/15 16:16) Generalized Itching Review of Systems Review of Systems: Constitutional: [PRESENT: as per HPI. ABSENT: chills, fever(s), headache(s), weight gain, weight loss] Eyes: [ABSENT: visual disturbances] Ears: [ABSENT: hearing changes] Cardiovascular: [ABSENT: chest pain, dyspnea on exertion, edema, orthropnea, palpitations] Respiratory: [ABSENT: cough, hemoptysis] Gastrointestinal: [ABSENT: abdominal pain, constipation, diarrhea, hematemesis, hematochezia, nausea, vomiting] Genitourinary: [ABSENT: dysuria, hematuria] Musculoskeletal: See HPI Integumentary: [ABSENT: rash, wounds] Neurological: [ABSENT: abnormal gait, abnormal speech, confusion, dizziness, focal weakness, syncope] Psychiatric: [ABSENT: anxiety, depression, homicidal ideation, suicidal ideation ] Endocrine: [ABSENT: cold intolerance, heat intolerance, menstrual abnormalities , polydipsia, polyuria] Hematologic/Lymphatic: [ABSENT: easy bleeding, easy bruising, lymphadenopathy] Physical Exam Vital Signs: Temp Pulse Resp BP Pulse Ox 36.7 C 15 120/64 98 05/10/18 17:00 05/10/18 17:00 05/10/18 17:00 05/10/18 17:00 General appearance: PRESENT: no acute distress Eye exam: PRESENT: EOMI, other - Round symmetric pupils.. ABSENT: nystagmus, periorbital swelling Ear exam: PRESENT: normal external ear exam. ABSENT: drainage Mouth exam: PRESENT: neck supple Neck exam: PRESENT: full ROM. ABSENT: tenderness, thyromegaly Respiratory exam: PRESENT: symmetrical, unlabored. ABSENT: tachypnea Cardiovascular exam: PRESENT: RRR Pulses: PRESENT: normal dorsalis pedis pul GI/Abdominal exam: PRESENT: soft. ABSENT: tenderness Neurological exam: PRESENT: alert, awake, oriented to person, oriented to place , oriented to time, oriented to situation Psychiatric exam: PRESENT: appropriate affect, normal mood Skin exam: PRESENT: intact. ABSENT: erythema, skin tears Adult Front & Back Image: 1 - Tender to palpation. Pain with logroll. Able to flex and extend the hip. Limb lengths are grossly equal. Good sensation to light touch distally with good capillary refill. Exam the left hand shows ecchymosis and pain in the left finger ring finger and small finger. There is some deformity of the ring finger so a close reduction of the hand was done. Good sensation to the digits with a good capillary refill. No deformity after reduction. Results Impressions: Cervical Spine CT 05/10/18 12:59 IMPRESSION: No acute abnormality in the cervical spine. Chronic pleural/ parenchymal scarring. Head CT 05/10/18 12:59 IMPRESSION: CHRONIC MICROVASCULAR ISCHEMIA. NO ACUTE IMAGING FINDINGS IN THE BRAIN. EVIDENCE OF ACUTE STROKE: NO. Hip X-Ray 05/10/18 12:59 IMPRESSION: Fracture involving the lesser trochanter. Cannot exclude dislocation/subluxation of the hip joint. Pelvis CT 05/10/18 14:42 IMPRESSION: The femoral component of the left hip appears slightly eccentrically positioned with regard to the acetabular component. Is there history that may suggest dislocation/relocation such that there could be some soft tissue trapped in the joint? Is the joint freely movable? The findings are subtle. Hand X-Ray 05/10/18 15:23 IMPRESSION: Acute transverse fractures left proximal metaphysis 4th and 5th phalanges, with slight dorsal angulation Wrist X-Ray 05/10/18 15:23 IMPRESSION: No acute left wrist fracture. Old healed left distal radius metaphysis fracture Status: Image reviewed by me Assessment & Plan - Diagnosis (1) Proximal phalanx fracture of finger Qualifiers: Encounter type: initial encounter Finger: ring finger Fracture type: closed Fracture alignment: displaced Laterality: left Qualified Code(s): S62.615A - Displaced fracture of proximal phalanx of left ring finger, initial encounter for closed fracture Is this a current diagnosis for this admission?: Yes Plan: Mild manipulation and closed reduction was done. Patient placed in ulnar gutter splint (2) Fracture of finger Qualifiers: Encounter type: initial encounter Finger: little finger Fracture type: closed Phalanx: proximal Fracture alignment: displaced Laterality: left Qualified Code(s): S62.617A - Displaced fracture of proximal phalanx of left little finger, initial encounter for closed fracture Is this a current diagnosis for this admission?: Yes Plan: No reduction required. Patient placed in ulnar gutter splint. Instructed to be nonweightbearing of the left upper extremity. (3) Fracture of lesser trochanter of femur Qualifiers: Encounter type: initial encounter Fracture type: closed Fracture alignment: nondisplaced Laterality: left Qualified Code(s): S72.125A - Nondisplaced fracture of lesser trochanter of left femur, initial encounter for closed fracture Is this a current diagnosis for this admission?: Yes Plan: 87-year-old female status post mechanical fall with a fracture avulsion of the lesser trochanter minimally displaced. Patient has a intact femoral prosthesis. No lesions noted. Usually these fractures are pathologic in nature but in this case a CT scan and x-rays do not show any lesions and patient has no history. In this case and reviewed the images with my partner. He agrees patient should weight-bear as tolerated with physical therapy. Recommend using a walker where she can weight-bear through her forearm. Recommend pain control. Patient lives by herself at home with home health the patient may now require assisted living or [facility] for discharge. Pertaining to the left hand patient has fracture of the fourth and fifth proximal phalanx is placed in a splint. Instructed to be nonweightbearing. We will have the patient follow-up with us 2 weeks for repeat x-rays.
[2018-05-10] MEDS: OXYCODONE-ACETAMINOPHEN 5-325 MG TABLET PO PRN (20:11)
[2018-05-10] MEDS ORDERED: PREDNISONE 7.5 MG PO SCH (22:00)
[2018-05-10] MEDS ORDERED: ATENOLOL 50 MG TABLET PO SCH (22:00)
[2018-05-10] MEDS ORDERED: INSULIN GLARGINE,HUM.REC.ANLOG 300 UNIT/3 ML INSULN.PEN SUBCUT SCH (22:00)
[2018-05-10] MEDS: HEPARIN SOD (PORCINE) 5,000 UNIT/ML 1 ML SYRINGE SUBCUT SCH (22:47)
[2018-05-10] MEDS: HYDRALAZINE HCL 25 MG TABLET PO SCH (22:48)
[2018-05-10] MEDS: GABAPENTIN 300 MG CAPSULE PO SCH (22:48)
[2018-05-10] MEDS: METOPROLOL TARTRATE 25 MG TABLET PO SCH (22:48)
[2018-05-10] MEDS: ZOLPIDEM TARTRATE 5 MG TABLET PO SCH (22:48)
[2018-05-10] MEDS: PREDNISONE 5 MG TABLET PO SCH (22:49)
[2018-05-11] MEDS: HEPARIN SOD (PORCINE) 5,000 UNIT/ML 1 ML SYRINGE SUBCUT SCH ×3 (05:46→21:43)
[2018-05-11] MEDS: LANSOPRAZOLE 30 MG TAB.RAP.DR PO SCH ×2 (05:46→17:18)
[2018-05-11] MEDS: HYDRALAZINE HCL 25 MG TABLET PO SCH ×3 (05:46→21:45)
[2018-05-11] MEDS: LEVOTHYROXINE SODIUM 0.025 MG TABLET PO SCH (05:47)
[2018-05-11 05:56] LABS: ABSOLUTE LYMPHOCYTES (AUTO) 1.2 10^3/uL (0.5-4.7); ABSOLUTE MONOCYTES (AUTO) 0.6 10^3/uL (0.1-1.4); ABSOLUTE NEUT (AUTO) 9.2 10^3/uL (1.7-8.2); BASOPHILS % (AUTO) 0.3 % (0-2); EOSINOPHILS % (AUTO) 0.1 % (0-6); HEMOGLOBIN 11.5 g/dL (12.0-15.5); LYMPHOCYTES % (AUTO) 10.6 % (13-45); MEAN CORPUSCULAR HGB CONC 33.9 g/dL (32.0-36.0); MEAN CORPUSCULAR VOLUME 92 fl (80-97); MONOCYTES % (AUTO) 5.9 % (3-13); PLATELET COUNT 232 10^3/uL (150-450); RED BLOOD COUNT 3.72 10^6/uL (3.72-5.28); RED CELL DISTRIBUTION WIDTH 13.7 % (11.5-14.0); SEGMENTED NEUTROPHILS % (AUTO) 83.1 % (42-78); TOTAL CELLS COUNTED % (AUTO) 100 %; WHITE BLOOD COUNT 11.1 10^3/uL (4.0-10.5)
[2018-05-11 06:21] LABS: ALANINE AMINOTRANSFERASE 26 U/L (9-52); ALBUMIN 3.3 g/dL (3.5-5.0); ALKALINE PHOSPHATASE 40 U/L (38-126); ANION GAP 12 (5-19); ASPARTATE AMINO TRANSFERASE 23 U/L (14-36); BILIRUBIN,TOTAL 1.4 mg/dL (0.2-1.3); BLOOD UREA NITROGEN 44 mg/dL (7-20); CALCIUM 9.8 mg/dL (8.4-10.2); CARBON DIOXIDE 27 mmol/L (22-30); CHLORIDE 97 mmol/L (98-107); GLUCOSE 267 mg/dL (75-110); POTASSIUM 4.9 mmol/L (3.6-5.0); SODIUM 135.6 mmol/L (137-145); TOTAL PROTEIN 6.6 g/dL (6.3-8.2)
[2018-05-11 06:26] LABS: INTERNATIONAL RATION (INR) 1.12
[2018-05-11 06:27] LABS: PARTIAL THROMBOPLASTIN TIME 41.3 SEC (23.5-35.8)
[2018-05-11] MEDS ORDERED: FUROSEMIDE 20 MG TABLET PO SCH (08:00)
[2018-05-11] MEDS: METOPROLOL TARTRATE 25 MG TABLET PO SCH ×2 (09:50→21:44)
[2018-05-11] MEDS: OXYCODONE-ACETAMINOPHEN 5-325 MG TABLET PO PRN (09:51)
[2018-05-11] MEDS: INSULIN LISPRO 100 UNIT/ML 3 ML VIAL SUBCUT PRN ×2 (09:52→12:45)
[2018-05-11] MEDS: GABAPENTIN 300 MG CAPSULE PO SCH ×2 (09:52→21:44)
[2018-05-11] MEDS: OXYCODONE HCL IR 5 MG TABLET PO PRN (09:56)
[2018-05-11] MEDS: AMLODIPINE BESYLATE 5 MG TABLET PO SCH (12:45)
[2018-05-11] MEDS: ISOSORBIDE MONONITRATE 30 MG TAB.ER.24H PO SCH (12:45)
--- NOTE | 2018-05-11 16:40 | PDOC PROGRESS REPORT ---
Subjective Progress Note for:: 05/11/18 Subjective:: Assumed care today. Ms. Vaughan is an 87 year old female extensive past medical history such as type 2 diabetes, hypertension, chronic pain, osteoporosis/ osteopenia, CAD with prior stents and CABG, SLE, bilateral hip replacement who sustained a left hip fracture after falling at home. Patient's fall was suspected to be from polypharmacy as she in on Ambien, oxycodone, and benzodiazepines at home. No acute event overnight. Upon encounter, patient appears sleepy but arousable. She was just given oxycodone for her left hip pain. She says the pain is better now. She denies any other acute complaint. No chest pain or SOB. She is oriented to person and situation. Orthopedics has recommended non-surgical management for the hip fracture. Reason For Visit: LEFT HIP FRACTURE Physical Exam Vital Signs: Temp Pulse Resp BP Pulse Ox 98.3 F 74 17 117/46 L 94 05/11/18 15:34 05/11/18 15:34 05/11/18 15:34 05/11/18 15:34 05/11/18 15:34 Intake & Output 05/10/18 05/11/18 05/12/18 06:59 06:59 06:59 Output Total 400 Balance -400 Weight 111 lb 8.862 oz General appearance: PRESENT: no acute distress, well-developed, well-nourished Head exam: PRESENT: normocephalic Eye exam: PRESENT: conjunctiva pink, EOMI, PERRLA. ABSENT: scleral icterus Ear exam: PRESENT: normal external ear exam Mouth exam: PRESENT: moist, tongue midline Neck exam: ABSENT: carotid bruit, JVD, lymphadenopathy, thyromegaly Respiratory exam: PRESENT: clear to auscultation lina. ABSENT: rales, rhonchi, wheezes Cardiovascular exam: PRESENT: RRR. ABSENT: diastolic murmur, rubs, systolic murmur Pulses: PRESENT: normal dorsalis pedis pul GI/Abdominal exam: PRESENT: normal bowel sounds, soft. ABSENT: distended, guarding, mass, organolmegaly, rebound, tenderness Rectal exam: PRESENT: deferred Extremities exam: PRESENT: tenderness - mild left hip tenderness Neurological exam: PRESENT: awake, oriented to person, oriented to place Results Laboratory Results: 05/11/18 05:31 05/11/18 05:31 05/11/18 05/11/18 05:31 05:31 WBC 11.1 H RBC 3.72 Hgb 11.5 L Hct 34.0 L MCV 92 MCH 31.0 MCHC 33.9 RDW 13.7 Plt Count 232 Seg Neutrophils % 83.1 H Lymphocytes % 10.6 L Monocytes % 5.9 Eosinophils % 0.1 Basophils % 0.3 Absolute Neutrophils 9.2 H Absolute Lymphocytes 1.2 Absolute Monocytes 0.6 Absolute Eosinophils 0.0 Absolute Basophils 0.0 Sodium 135.6 L Potassium 4.9 Chloride 97 L Carbon Dioxide 27 Anion Gap 12 BUN 44 H Creatinine 1.14 Est GFR ( Amer) 55 L Est GFR (Non-Af Amer) 45 L Glucose 267 H Calcium 9.8 Magnesium 1.9 Total Bilirubin 1.4 H AST 23 ALT 26 Alkaline Phosphatase 40 Total Protein 6.6 Albumin 3.3 L Impressions: Cervical Spine CT 05/10/18 12:59 IMPRESSION: No acute abnormality in the cervical spine. Chronic pleural/ parenchymal scarring. Head CT 05/10/18 12:59 IMPRESSION: CHRONIC MICROVASCULAR ISCHEMIA. NO ACUTE IMAGING FINDINGS IN THE BRAIN. EVIDENCE OF ACUTE STROKE: NO. Hip X-Ray 05/10/18 12:59 IMPRESSION: Fracture involving the lesser trochanter. Cannot exclude dislocation/subluxation of the hip joint. Pelvis CT 05/10/18 14:42 IMPRESSION: The femoral component of the left hip appears slightly eccentrically positioned with regard to the acetabular component. Is there history that may suggest dislocation/relocation such that there could be some soft tissue trapped in the joint? Is the joint freely movable? The findings are subtle. Hand X-Ray 05/10/18 15:23 IMPRESSION: Acute transverse fractures left proximal metaphysis 4th and 5th phalanges, with slight dorsal angulation Wrist X-Ray 05/10/18 15:23 IMPRESSION: No acute left wrist fracture. Old healed left distal radius metaphysis fracture Assessment & Plan - Diagnosis (1) Fracture of lesser trochanter of femur Qualifiers: Encounter type: initial encounter Fracture type: closed Fracture alignment: nondisplaced Laterality: left Qualified Code(s): S72.125A - Nondisplaced fracture of lesser trochanter of left femur, initial encounter for closed fracture Is this a current diagnosis for this admission?: Yes Plan: Orthopedics following and has recommended non-surgical management. PT/OT consulted. Will also consult Dr. Walker (rehab) for further recommendations. Patient will likely be transferred later to SNF/rehab. (2) Insulin dependent diabetes mellitus Is this a current diagnosis for this admission?: Yes Plan: Sugars running high in the 200-300s. Currently on Lantus 20 u HS. She takes 40 u at home. Will increase Lantus to 30 u and will adjust based on subsequent sugar readings. - Time Time Spent with patient: 15-24 minutes
[2018-05-11] MEDS: NORMAL SALINE 1000 ML 1,000 ML IV PRN (17:19)
[2018-05-11] MEDS: ZOLPIDEM TARTRATE 5 MG TABLET PO SCH (21:44)
[2018-05-11] MEDS: PREDNISONE 5 MG TABLET PO SCH (21:45)
[2018-05-11] MEDS: INSULIN GLARGINE,HUM.REC.ANLOG 300 UNIT/3 ML INSULN.PEN SUBCUT SCH (21:45)
[2018-05-12] MEDS: LANSOPRAZOLE 30 MG TAB.RAP.DR PO SCH ×2 (05:30→18:56)
[2018-05-12] MEDS: HEPARIN SOD (PORCINE) 5,000 UNIT/ML 1 ML SYRINGE SUBCUT SCH ×3 (05:30→21:46)
[2018-05-12] MEDS: HYDRALAZINE HCL 25 MG TABLET PO SCH ×3 (05:30→21:44)
[2018-05-12] MEDS: LEVOTHYROXINE SODIUM 0.025 MG TABLET PO SCH (05:31)
[2018-05-12] MEDS: METOPROLOL TARTRATE 25 MG TABLET PO SCH ×2 (11:11→21:44)
[2018-05-12] MEDS: ISOSORBIDE MONONITRATE 30 MG TAB.ER.24H PO SCH (11:12)
[2018-05-12] MEDS: AMLODIPINE BESYLATE 5 MG TABLET PO SCH (11:12)
[2018-05-12] MEDS: GABAPENTIN 300 MG CAPSULE PO SCH ×2 (11:13→21:48)
[2018-05-12] MEDS: NORMAL SALINE 1000 ML 1,000 ML IV PRN (11:14)
[2018-05-12] MEDS ORDERED: ONDANSETRON 4 MG TAB.RAPDIS PO PRN (14:00)
--- NOTE | 2018-05-12 15:25 | PDOC PROGRESS REPORT ---
Subjective Progress Note for:: 05/12/18 Subjective:: Ms. Vaughan is an 87 year old female extensive past medical history such as type 2 diabetes, hypertension, chronic pain, osteoporosis/osteopenia, CAD with prior stents and CABG, SLE, bilateral hip replacement who sustained a left hip fracture after falling at home. Patient's fall was suspected to be from polypharmacy as she in on Ambien, oxycodone, and benzodiazepines at home. Orthopedics has recommended non-surgical management for the hip fracture. No acute event overnight. She is fully awake and appears comfortable upon encounter but is only oriented to person and situation. Denies pain at the moment. She denies any other acute complaint. No chest pain or SOB. She is awaiting rehab placement and will likely be transferred tomorrow. Reason For Visit: LEFT HIP FRACTURE Physical Exam Vital Signs: Temp Pulse Resp BP Pulse Ox 98.1 F 93 18 137/45 H 95 05/12/18 15:07 05/12/18 15:07 05/12/18 15:07 05/12/18 15:07 05/12/18 15:07 Intake & Output 05/11/18 05/12/18 05/13/18 06:59 06:59 06:59 Intake Total 478 1000 Output Total 400 500 Balance -400 -22 1000 Weight 111 lb 8.862 oz 114 lb 6.719 oz General appearance: PRESENT: no acute distress, well-developed, well-nourished Head exam: PRESENT: atraumatic, normocephalic Eye exam: PRESENT: conjunctiva pink, EOMI, PERRLA. ABSENT: scleral icterus Ear exam: PRESENT: normal external ear exam Mouth exam: PRESENT: moist, tongue midline Neck exam: ABSENT: carotid bruit, JVD, lymphadenopathy, thyromegaly Respiratory exam: PRESENT: clear to auscultation lina. ABSENT: rales, rhonchi, wheezes Cardiovascular exam: PRESENT: RRR. ABSENT: diastolic murmur, rubs, systolic murmur Pulses: PRESENT: normal dorsalis pedis pul GI/Abdominal exam: PRESENT: normal bowel sounds, soft. ABSENT: distended, guarding, mass, organolmegaly, rebound, tenderness Rectal exam: PRESENT: deferred Extremities exam: ABSENT: calf tenderness, clubbing, pedal edema Neurological exam: PRESENT: alert, awake, oriented to person, oriented to situation Results Laboratory Results: 05/11/18 05:31 05/11/18 05:31 Impressions: Cervical Spine CT 05/10/18 12:59 IMPRESSION: No acute abnormality in the cervical spine. Chronic pleural/ parenchymal scarring. Head CT 05/10/18 12:59 IMPRESSION: CHRONIC MICROVASCULAR ISCHEMIA. NO ACUTE IMAGING FINDINGS IN THE BRAIN. EVIDENCE OF ACUTE STROKE: NO. Hip X-Ray 05/10/18 12:59 IMPRESSION: Fracture involving the lesser trochanter. Cannot exclude dislocation/subluxation of the hip joint. Pelvis CT 05/10/18 14:42 IMPRESSION: The femoral component of the left hip appears slightly eccentrically positioned with regard to the acetabular component. Is there history that may suggest dislocation/relocation such that there could be some soft tissue trapped in the joint? Is the joint freely movable? The findings are subtle. Hand X-Ray 05/10/18 15:23 IMPRESSION: Acute transverse fractures left proximal metaphysis 4th and 5th phalanges, with slight dorsal angulation Wrist X-Ray 05/10/18 15:23 IMPRESSION: No acute left wrist fracture. Old healed left distal radius metaphysis fracture Assessment & Plan - Diagnosis (1) Fracture of lesser trochanter of femur Qualifiers: Encounter type: initial encounter Fracture type: closed Fracture alignment: nondisplaced Laterality: left Qualified Code(s): S72.125A - Nondisplaced fracture of lesser trochanter of left femur, initial encounter for closed fracture Is this a current diagnosis for this admission?: Yes Plan: Orthopedics following and has recommended non-surgical management. PT/OT consulted. Await further recommendations from Dr. Walker. Patient will be transferred to SNF/rehab likely tomorrow. (2) Insulin dependent diabetes mellitus Is this a current diagnosis for this admission?: Yes Plan: Noted sugars overnight. Keep Lantus at 30 u for now and will adjust based on subsequent sugar readings. She is on 40 u HS at home. (3) Coronary artery disease Qualifiers: Coronary Disease-Associated Artery/Lesion type: [place] artery Associated angina: angina presence unspecified Is this a current diagnosis for this admission?: Yes Plan: She has prior CABG. She is not on any antiplatelet. Continue statin. Will start patient on Plavix. (4) Hypertension Qualifiers: Hypertension type: unspecified Qualified Code(s): I10 - Essential (primary ) hypertension Is this a current diagnosis for this admission?: Yes Plan: Blood pressures at goal. Continue lopressor and amlodipine. - Time Time Spent with patient: 15-24 minutes
[2018-05-12] MEDS: OXYCODONE HCL IR 5 MG TABLET PO PRN (19:55)
[2018-05-12] MEDS: OXYCODONE-ACETAMINOPHEN 5-325 MG TABLET PO PRN (19:56)
[2018-05-12] MEDS: PREDNISONE 5 MG TABLET PO SCH (21:42)
[2018-05-12] MEDS: INSULIN GLARGINE,HUM.REC.ANLOG 300 UNIT/3 ML INSULN.PEN SUBCUT SCH (21:50)
[2018-05-12] MEDS: ZOLPIDEM TARTRATE 5 MG TABLET PO SCH (21:52)
[2018-05-13] MEDS: HYDRALAZINE HCL 25 MG TABLET PO SCH ×2 (05:26→13:39)
[2018-05-13] MEDS: LANSOPRAZOLE 30 MG TAB.RAP.DR PO SCH ×2 (05:26→17:31)
[2018-05-13] MEDS: HEPARIN SOD (PORCINE) 5,000 UNIT/ML 1 ML SYRINGE SUBCUT SCH ×2 (05:26→17:32)
[2018-05-13] MEDS: LEVOTHYROXINE SODIUM 0.025 MG TABLET PO SCH (05:26)
[2018-05-13] MEDS ORDERED: CLOPIDOGREL BISULFATE 75 MG TABLET PO SCH (10:00)
[2018-05-13] MEDS: GABAPENTIN 300 MG CAPSULE PO SCH (10:26)
[2018-05-13] MEDS: METOPROLOL TARTRATE 25 MG TABLET PO SCH (10:27)
[2018-05-13] MEDS: INSULIN LISPRO 100 UNIT/ML 3 ML VIAL SUBCUT PRN ×2 (10:28→13:39)
[2018-05-13] MEDS: OXYCODONE HCL IR 5 MG TABLET PO PRN ×2 (10:39→10:47)
--- NOTE | 2018-05-13 10:46 | PDOC TRANSFER SUMMARY ---
General Admission Date/PCP: 05/10/18 17:09 SHAYY FLORES MD Resuscitation Status: Full Code - Transfer Diagnosis (1) Fracture of lesser trochanter of femur Is this a current diagnosis for this admission?: Yes (2) Insulin dependent diabetes mellitus Is this a current diagnosis for this admission?: Yes (3) Finger fracture, left Is this a current diagnosis for this admission?: Yes (4) Coronary artery disease Is this a current diagnosis for this admission?: Yes - Transfer Medications Home Medications: Amlodipine Besylate [Norvasc 5 mg Tablet] 5 mg PO NOON 05/10/18 Calcium Citrate/Vitamin D3 [Calcium Citrate-Vit D3 Caplet] 2 tab PO DAILY Fenofibrate 160 mg PO DAILY 05/10/18 Ferrous Sulfate [Feosol 325 mg Tablet] 325 mg PO TID@1200,1800,2200 05/10/18 Furosemide [Lasix 20 mg Tablet] 20 mg PO QAM 05/10/18 Gabapentin [Neurontin 300 mg Capsule] 600 mg PO Q12 05/10/18 Hydralazine HCl [Apresoline 25 mg Tablet] 25 mg PO Q8 05/10/18 Insulin Lispro [Humalog Kwikpen U-100] 12 unit SQ AC 05/10/18 Isosorbide Mononitrate [Isosorbide Mononitrate ER] 30 mg PO NOON 05/10/18 Levothyroxine Sodium [Synthroid 0.025 mg Tablet] 0.025 mg PO NOON 05/10/18 Metoprolol Tartrate [Lopressor 25 mg Tablet] 12.5 mg PO Q12 05/10/18 Omeprazole 20 mg PO DAILY 05/10/18 Paroxetine HCl [Paxil 20 mg Tablet] 20 mg PO QHS 05/10/18 Transfer Medications: Current Medications Amlodipine Besylate (Norvasc 5 Mg Tablet) 5 mg PO NOON [facility] Stop: 06/10/18 11:59 Clopidogrel Bisulfate (Plavix 75 Mg Tablet) 75 mg PO DAILY [facility] Stop: 06/12/18 09:59 Last Admin: 05/13/18 10:26 Dose: 75 mg Dextrose (Dextrose Inj 50% Syringe (25 Gm/50 Ml)) 12.5 gm IV PRN PRN; Protocol PRN Reason: FOR BG 50-69 IN ALERT PATIENT Stop: 06/09/18 17:12 Dextrose (Dextrose Inj 50% Syringe (25 Gm/50 Ml)) 25 gm IV PRN PRN; Protocol PRN Reason: PER PROTOCOL Stop: 06/09/18 17:12 Gabapentin (Neurontin 300 Mg Capsule) 600 mg PO Q12 [facility] Stop: 06/09/18 21:59 Last Admin: 05/13/18 10:26 Dose: 600 mg Glucagon (Glucagen Inj 1 Mg Vial) 1 mg IM PRN PRN; Protocol PRN Reason: Evaluate for BG < 70 Stop: 06/09/18 17:12 Glucose (Glutose 40% Gel 15 Gm Tube) 15 gm PO PRN PRN; Protocol PRN Reason: FOR BG 50-69 IN ALERT PATIENT Stop: 06/09/18 17:12 Glucose (Glutose 40% Gel 15 Gm Tube) 30 gm PO PRN PRN; Protocol PRN Reason: FOR BG < 50 IN ALERT PATIENT Stop: 06/09/18 17:12 Heparin Sodium (Porcine) (Heparin Inj 5,000 Units/Ml 1 Ml Syringe) 5,000 unit SUBCUT Q8 [facility] Stop: 06/09/18 21:59 Last Admin: 05/13/18 05:26 Dose: 5,000 unit Hydralazine HCl (Apresoline 25 Mg Tablet) 25 mg PO Q8 [facility] Stop: 06/09/18 21:59 Last Admin: 05/13/18 05:26 Dose: 25 mg Sodium Chloride (Nacl 0.9% 1000 Ml Iv Soln) 1,000 mls @ 80 mls/hr IV CONTINUOUS PRN PRN Reason: THIS MED IS NOT "PRN" Stop: 06/09/18 17:04 Last Admin: 05/12/18 11:14 Dose: 80 mls/hr Insulin Glargine (Lantus Insulin Inj 300 Unit/3 Ml Pen) 30 unit SUBCUT QHS [facility] Stop: 06/10/18 21:59 Last Admin: 05/12/18 21:50 Dose: 30 units Insulin Human Lispro (Humalog Insulin 100 Unit/1 Ml 3 Ml Vial) 0 - 12 unit SUBCUT ACHSP PRN; Protocol PRN Reason: PER PROTOCOL Stop: 06/09/18 17:12 Last Admin: 05/13/18 10:28 Dose: 6 units Isosorbide Mononitrate (Imdur 30 Mg Tablet.Er) 30 mg PO NOON [facility] Stop: 06/10/18 11:59 Lansoprazole (Prevacid 30 Mg Odt Tablet) 30 mg PO BID@0600,1700 [facility] Stop: 06/10/18 05:59 Last Admin: 05/13/18 05:26 Dose: 30 mg Levothyroxine Sodium (Synthroid 0.025 Mg Tablet) 0.025 mg PO Q6AM [facility] Stop: 06/10/18 05:59 Last Admin: 05/13/18 05:26 Dose: 0.025 mg Metoprolol Tartrate (Lopressor 25 Mg Tablet) 12.5 mg PO Q12 [facility] Stop: 06/09/18 21:59 Last Admin: 05/13/18 10:27 Dose: 12.5 mg Ondansetron HCl (Zofran Odt 4 Mg Tablet) 4 mg PO Q6HP PRN PRN Reason: FOR NAUSEA/VOMITING Stop: 06/09/18 17:04 Oxycodone HCl (Oxy-Ir 5 Mg Tablet) 5 mg PO TIDP PRN PRN Reason: FOR PAIN Stop: 05/17/18 18:29 Last Admin: 05/13/18 10:39 Dose: 5 mg Oxycodone/Acetaminophen (Percocet 5-325 Mg Tablet) 1 tab PO TIDP PRN PRN Reason: FOR PAIN Stop: 05/17/18 18:29 Last Admin: 05/12/18 19:56 Dose: 1 tab Prednisone (Deltasone 5 Mg Tablet) 7.5 mg PO QHS [facility] Stop: 06/09/18 21:59 Last Admin: 05/12/18 21:42 Dose: 7.5 mg Zolpidem Tartrate (Ambien 5 Mg Tablet) 5 mg PO QHS [facility] Stop: 05/17/18 21:59 Last Admin: 05/12/18 21:52 Dose: Not Given - Allergies Allergies/Adverse Reactions: simvastatin [From Zocor] Allergy (Verified 10/15/15 16:16) Generalized Itching Hospital Course Hospital Course: HPI: KAILA ANDRADE is a 87 year old female with a past medical history of type 2 diabetes, hypertension, chronic pain, osteoporosis/osteopenia, CAD status post stents and CABG, SLE, 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 She was brought to ED by EMS complaining of left leg pain status post fall 2 days ago. Patient's home medications include oxycodone, benzos, Ambien which may have contributed to the recent fall. Patient's nurse aide called EMS. Fall happened on Thursday night however EMS was only called today after a visit by home health. Oldest son who is in the room stated that they were not aware of the fall and they were notified today by home health. Patient lives alone but has home health and home physical therapy. Patient seems very quiet however cooperative with physical examination and history but does not provide history in detail. She is states that she has constant pain in the left hip which is worse with movement. Denies any headache, fever, head injury, neck pain, chest pain, palpitations, syncope, cough, shortness of breath , abdominal pain, nausea/vomiting. The head and neck did not show any acute abnormalities however x-ray of the left hip showed fracture in the lesser trochanter. Hospitalist was consulted for admission. COURSE: Patient was evaluated by orthopedics who recommended non-surgical management of left hip fracture with instructions to be non-weightbearing. PT/ OT was also consulted and deemed patient will require transfer to rehab upon discharge. Patient also sustained left hand fractures from the fall particularly on the 4th and 5th metaphyses. Mild manipulation was done by ortho with placement of ulnar gutter splint with instructions to be non-weightbearing. She will need follow-up with ortho in 2 weeks for repeat x-rays. Patient has been on shelter steroids for [facility] SLE which is controlled. With patient's osteoporosis, fractures and risk of fall, I recommend eventually weaning patient off steroids and ff-up with a wood heel fitter machine as outpatient for steroid-sparing options. Will reduce prednisone from 7.5 to 5 mg daily. Continue vitamin D and calcium supplements. With patient's SLE, osteoporosis, fractures and steroid therapy, she will be benefit from being started on bisphosphonate therapy when she follows up with her PCP. Physical Exam Vital Signs: Temp Pulse Resp BP Pulse Ox 97.8 F 96 16 149/51 H 93 05/13/18 07:33 05/13/18 07:33 05/13/18 07:33 05/13/18 07:33 05/13/18 07:33 Intake & Output 05/12/18 05/13/18 05/14/18 06:59 06:59 06:59 Intake Total 478 1620 Output Total 500 550 Balance -22 1070 Weight 114 lb 6.719 oz 114 lb 10.246 oz General appearance: PRESENT: no acute distress, well-developed, well-nourished Head exam: PRESENT: atraumatic, normocephalic Eye exam: PRESENT: conjunctiva pink, EOMI, PERRLA. ABSENT: scleral icterus Ear exam: PRESENT: normal external ear exam Mouth exam: PRESENT: moist, tongue midline Neck exam: ABSENT: carotid bruit, JVD, lymphadenopathy, thyromegaly Respiratory exam: PRESENT: clear to auscultation lina. ABSENT: rales, rhonchi, wheezes Cardiovascular exam: PRESENT: RRR. ABSENT: diastolic murmur, rubs, systolic murmur Vascular exam: PRESENT: normal capillary refill GI/Abdominal exam: PRESENT: normal bowel sounds, soft. ABSENT: distended, guarding, mass, organolmegaly, rebound, tenderness Rectal exam: PRESENT: deferred Extremities exam: PRESENT: other - gutter splints in place on left 4th and 5th metaphyses Neurological exam: PRESENT: alert, awake, oriented to person, oriented to place , oriented to situation Results Laboratory Results: 05/11/18 05:31 05/11/18 05:31 Impressions: Cervical Spine CT 05/10/18 12:59 IMPRESSION: No acute abnormality in the cervical spine. Chronic pleural/ parenchymal scarring. Head CT 05/10/18 12:59 IMPRESSION: CHRONIC MICROVASCULAR ISCHEMIA. NO ACUTE IMAGING FINDINGS IN THE BRAIN. EVIDENCE OF ACUTE STROKE: NO. Hip X-Ray 05/10/18 12:59 IMPRESSION: Fracture involving the lesser trochanter. Cannot exclude dislocation/subluxation of the hip joint. Pelvis CT 05/10/18 14:42 IMPRESSION: The femoral component of the left hip appears slightly eccentrically positioned with regard to the acetabular component. Is there history that may suggest dislocation/relocation such that there could be some soft tissue trapped in the joint? Is the joint freely movable? The findings are subtle. Hand X-Ray 05/10/18 15:23 IMPRESSION: Acute transverse fractures left proximal metaphysis 4th and 5th phalanges, with slight dorsal angulation Wrist X-Ray 05/10/18 15:23 IMPRESSION: No acute left wrist fracture. Old healed left distal radius metaphysis fracture
[2018-05-13] MEDS: OXYCODONE-ACETAMINOPHEN 5-325 MG TABLET PO PRN (10:48)
[2018-05-13] MEDS ORDERED: AMLODIPINE BESYLATE 5 MG TABLET PO SCH (12:00)
[2018-05-13] MEDS ORDERED: ISOSORBIDE MONONITRATE 30 MG TAB.ER.24H PO SCH (12:00)
[2018-05-13] MEDS: NORMAL SALINE 1000 ML 1,000 ML IV PRN (13:37)
[2018-05-13 15:18] VITALS: BP 128/33
[2018-05-14] MEDS ORDERED: CHOLECALCIFEROL (D3) 1,000 UNIT TABLET PO SCH (10:00)
== END 2018-05-13 19:35 | DRG 536 ==
LOC: ER 12:31 → EH 17:09 → 4S 17:46
PROVIDERS: ADMIT Emergency Medicine; ATTEND Emergency Medicine
DX: S72.125A Nondisplaced fracture of lesser trochanter of left femur, initial encounter for closed fracture (principal); F11.20 Opioid dependence, uncomplicated; S62.617A Displaced fracture of proximal phalanx of left little finger, initial encounter for closed fracture; S62.615A Displaced fracture of proximal phalanx of left ring finger, initial encounter for closed fracture; E11.9 Type 2 diabetes mellitus without complications; I25.10 Atherosclerotic heart disease of native coronary artery without angina pectoris; G89.29 Other chronic pain; M81.0 Age-related osteoporosis without current pathological fracture; M32.9 Systemic lupus erythematosus, unspecified; I11.0 Hypertensive heart disease with heart failure; I50.9 Heart failure, unspecified; K21.9 Gastro-esophageal reflux disease without esophagitis; M19.90 Unspecified osteoarthritis, unspecified site; F32.9 Major depressive disorder, single episode, unspecified; E03.9 Hypothyroidism, unspecified; W01.0XXA Fall on same level from slipping, tripping and stumbling without subsequent striking against object, initial encounter; Y92.012 Bathroom of single-family (private) house as the place of occurrence of the external cause; I25.2 Old myocardial infarction; Z96.643 Presence of artificial hip joint, bilateral; Z23 Encounter for immunization; Z79.4 Long term (current) use of insulin; Z79.899 Other long term (current) drug therapy; Z88.8 Allergy status to other drugs, medicaments and biological substances; Z95.1 Presence of aortocoronary bypass graft; Z95.5 Presence of coronary angioplasty implant and graft
CPT/HCPCS: 36415; 51701; 51702; 70450; 72125; 72192; 80053; 81001; 82962; 83735; 85025; 85610; 85730; 87086; 90471; 90686; 99285; G0008; G8978-GP; G8979-GP; G8987-GO; G8988-GO; J1644; J1815; J7030; J7512

== ENCOUNTER 2019-01-11 11:23 | Emergency (ER) | payer MEDICARE, MEDICAID ==
--- NOTE | 2019-01-11 12:12 | RADIOLOGY REPORT (SQ) ---
EXAM DESCRIPTION: SHOULDER LEFT 2 OR MORE VIEWS COMPLETED DATE/TIME: 01/11/2019 12:02 pm REASON FOR STUDY: bed 7 +deformity left shoulder COMPARISON: None. NUMBER OF VIEWS: Two views. TECHNIQUE: AP and Y view images acquired of the left shoulder. LIMITATIONS: None. FINDINGS: MINERALIZATION: Osteoporotic BONES: Acute comminuted left humeral head and humeral neck fracture with varus angulation at the frac ture site JOINTS: Normal glenohumeral joint alignment. No AC joint widening VISUALIZED LUNGS AND RIBS: No pneumothorax. No rib fracture. SOFT TISSUES: No radiopaque foreign body. OTHER: No other significant finding. IMPRESSION: Acute comminuted left humeral head and humeral neck fracture with varus angulation at th e fracture site. TECHNICAL DOCUMENTATION: JOB ID: [id number] [employer]- All Rights Reserved Reading location - IP/workstation name: [email or web address]
--- NOTE | 2019-01-11 12:16 | ER Document Report ---
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 Fell onto her left arm. Cannot move her left arm. Had significant pain. Patient did not hit her head. No loss of consciousness. Denies any other pain. Has some bleeding present on the left wrist and left elbow area from a skin tear. Up-to-date on shots and immunizations. She has a pain patch on her right posterior shoulder that she wears every day and has some home pain medications as well. TRAVEL OUTSIDE OF THE [place] IN LAST 30 DAYS: No - HPI Patient complains to provider of: Injury, Pain, Left, Shoulder. No: Elbow Onset: Just prior to arrival Quality of pain: Throbbing Severity of pain: Moderate Pain Level: 4 Context: Fall Associated symptoms: None - Related Data Allergies/Adverse Reactions: simvastatin [From Zocor] Allergy (Verified 10/15/15 16:16) Generalized Itching Past Medical History - General Information source: Patient, Relative, [facility] Records - Social History Smoking Status: Never Smoker Frequency of alcohol use: None Drug Abuse: None Lives with: Family Family History: Reviewed & Not Pertinent - Past Medical History Cardiac Medical History: Reports: Hx Congestive Heart Failure, Hx Heart Attack - x2, Hx Hypertension Pulmonary Medical History: Reports: Hx Pneumonia Endocrine Medical History: Reports: Hx Diabetes Mellitus Type 2 Renal/ Medical History: Denies: Hx Peritoneal Dialysis GI Medical History: Reports: Hx Gastroesophageal Reflux Disease Musculoskeletal Medical History: Reports Hx Arthritis, Reports Hx Systemic Lupus Erythematosus Psychiatric Medical History: Reports: Hx Depression Past Surgical History: Reports: Hx Cardiac Surgery - bypass, Hx Coronary Artery Bypass Graft, Hx Orthopedic Surgery - bilateral hip replacement, WISHES TO F/U W/ HER ORTHO IN [place] - Immunizations Hx Diphtheria, Pertussis, Tetanus Vaccination: No Hx Pneumococcal Vaccination: 09/03/15 Review of Systems - Review of Systems Notes: Constitutional: denies: Chills, Diaphoresis, Fever, Malaise, Weakness EENT: denies: Eye discharge, Blurred vision, Tearing, Double vision, Nose congestion, Nose discharge, Throat swelling, Mouth pain Cardiovascular: denies: Palpitations, Heart racing, Orthopnea, Dyspnea, Chest pain Respiratory: denies: Cough, Hurts to breathe, Wheezing, Shortness of breath Gastrointestinal: denies: Abdominal pain, Diarrhea, Nausea, Vomiting, Black stools, bright red blood in stool Genitourinary: denies: Burning, Dysuria, Discharge, Frequency, Flank pain, Hematuria Musculoskeletal: Complaining of pain in the left shoulder area. No wrist pain. No elbow pain. No other back pain or issues. Hematologic/Lymphatic: denies: Anemia, Easy bleeding, Easy bruising, Blood clots Neurological/Psychological: denies: Confusion, Dementia, Depression, Loss of consciousness Skin: No lesions, no masses, no skin breakdown, no abscesses. Complaining of laceration to the left wrist and left elbow area Physical Exam - Vital signs Interpretation: Normal - General General appearance: Appears well, Alert - HEENT Head: Normocephalic, Atraumatic Eyes: Normal Pupils: PERRL - Respiratory Respiratory status: No respiratory distress Chest status: Nontender Breath sounds: Normal Chest palpation: Normal - Cardiovascular Rhythm: Regular Heart sounds: Normal auscultation Murmur: No - Abdominal Inspection: Normal Distension: No distension Bowel sounds: Normal Tenderness: Nontender Organomegaly: No organomegaly - Back Back: Normal, Nontender - Extremities General upper extremity: Other - The right upper extremity is unremarkable. The left upper extremity demonstrates tenderness to palpation at the left shoulder. There is full range of motion at the elbow. There is range of motion present at the shoulder. Wrist is unremarkable. There is a boutonniere deformity of the second digit on the left hand. There are skin tears noted on the left upper extremity. General lower extremity: Normal inspection, Nontender, Normal color, Normal ROM, Normal temperature, Normal weight bearing. No: Cate's sign - Neurological Neuro grossly intact: Yes Cognition: Normal Orientation: AAOx4 [place] Coma Scale Eye Opening: Spontaneous [place] Coma Scale Verbal: Oriented [place] Coma Scale Motor: Obeys Commands [place] Coma Scale Total: 15 Speech: Normal Motor strength normal: LUE, RUE, LLE, RLE Sensory: Normal - Psychological Associated symptoms: Normal affect, Normal mood - Skin Skin Temperature: Warm Skin Moisture: Dry Skin Color: Other - There is a 1 cm laceration skin tear present at the left elbow area. There is a 1 cm skin tear laceration present at the left wrist. Course - Re-evaluation Re-evalutation: 01/11/19 13:24 Procedure note: Fracture care Initial 24-hour definitive fracture care provided by Dr. Zaragoza 01/11/19 13:25 I did consult with orthopedic surgery due to the nature of the fracture. Patient has a pain patch on. I did give her some Toradol. Has pain management medications at home. states that we can discharge her in a sling. I did repair the lacerations. Family members are present. Conversation had with regards to need for outpatient care. Will DC at this time in stable condition. 01/11/19 13:26 Shoulder X-Ray 01/11/19 00:00 IMPRESSION: Acute comminuted left humeral head and humeral neck fracture with varus angulation at the fracture site. 01/11/19 13:28 Sling placement: Sling was applied to the left upper extremity. No complications. Neurovascularly intact. Procedures - Laceration/Wound Repair Left Elbow Time completed: 13:27 Wound length (cm): 1 Wound's Depth, Shape: Flap Wound explored: Clean Wound Repaired With: Dermabond Notes: 01/11/19 13:28 Laceration #1 at left elbow. 1 cm. Repaired with Dermabond. Laceration #2 at right wrist. 1 cm. Re-repaired with Dermabond. Discharge - Discharge Clinical Impression: Closed fracture of left proximal humerus Qualifiers: Encounter type: initial encounter Fracture morphology: unspecified fracture morphology Qualified Code(s): S42.202A - Unspecified fracture of upper end of left humerus, initial encounter for closed fracture Skin tear of elbow without complication Qualifiers: Encounter type: initial encounter Laterality: left Qualified Code(s): S51.012A - Laceration without foreign body of left elbow, initial encounter Condition: Good Disposition: HOME, SELF-CARE Instructions: Fracture Proximal Humerus Additional Instructions: Wear sling as instructed. Follow-up with orthopedic surgery. Take all of your regular pain medication. Talk to your regular doctor about your pain medication that may be required for breakthrough pain. In the event that you get worsening symptoms please return for repeat evaluation. Referrals: SHAYY FLORES MD [Primary Care Provider] - Follow up as needed
[2019-01-11] MEDS ORDERED: FENTANYL CITRATE INJ/PF 100 MCG/2 ML AMPUL IV ONE (12:31)
[2019-01-11] MEDS ORDERED: KETOROLAC TROMETHAMINE INJ/PF 30 MG/1 ML SDV IV ONE (12:32)
[2019-01-11 14:25] VITALS: BP 192/68
== END 2019-01-11 14:25 | disposition home or self-care (01) ==
LOC: ER 11:23
DX: S42.202A Unspecified fracture of upper end of left humerus, initial encounter for closed fracture (principal); S51.012A Laceration without foreign body of left elbow, initial encounter; W18.30XA Fall on same level, unspecified, initial encounter; I50.9 Heart failure, unspecified; I11.0 Hypertensive heart disease with heart failure; I25.2 Old myocardial infarction
CPT/HCPCS: 99283; 73030; 12001; L3650; J1885